=== PATIENT | female | born 1945 | race Caucasian/White ===

== ENCOUNTER 2018-03-18 15:26 | Observation (INO) | payer OTHER ==
--- OUTSIDE RECORDS SUMMARY | 2018-03-18 15:30 | XMS REPORT | Clinical Summary ---
:1945 Author Organization [facility] Address [address] [place] [address] Care Team Providers Name Role Phone Asked, No Pcp Primary Care Provider Unavailable Allergies Active Allergy Reactions Severity Noted Date Comments Aspirin GI Bleeding 10/13/2017 Atropine Other (See Comments) Low 09/26/2017 Insomnia Codeine GI Intolerance High 09/26/2017 Extreme vomiting Erythromycin GI Intolerance High 09/26/2017 Extreme vomiting Fentanyl GI Intolerance Low 09/26/2017 Vomiting and Insomnia Levofloxacin Diarrhea High 09/26/2017 Morphine GI Intolerance High 09/26/2017 Extreme vomiting Rivaroxaban GI Intolerance 10/13/2017 Sulfa (Sulfonamide GI Intolerance High 09/26/2017 Vomiting Antibiotics) Pentazocine Lactate GI Intolerance High 09/26/2017 Extreme vomiting Tramadol Other (See Comments) Medium 09/26/2017 Delirium and psychosis Acetaminophen-Codeine GI Intolerance High 09/26/2017 Extreme Vomiting Current Medications Prescription Sig. Disp. Refills Start Date End Date Status lansoprazole Take 30 mg by Active (PREVACID) 30 MG mouth 2 (two) capsule times a day. venlafaxine XR Take 75 mg by Active (EFFEXOR-XR) 75 MG mouth every 24 hr capsule morning. pregabalin (LYRICA) Take 150 mg by Active 150 MG capsule mouth daily. Mid morning clopidogrel Take 75 mg by Active (PLAVIX) 75 mg mouth every tablet morning. diltiazem Take 120 mg by Active (CardIZEM) 60 MG mouth daily. tablet docusate sodium Take 300 mg by Active (COLACE) 100 MG mouth nightly. capsule promethazine Take 25 mg by Active (PHENERGAN) 25 MG mouth every 6 tablet (six) hours as needed for nausea or vomiting. hyoscyamine Take 0.25 mg 09/29/2017 Active (LEVSIN) 0.125 mg by mouth 2 tablet (two) times a day as needed. phenobarb/hyoscy/at Take by mouth. Active ropine/scop ( ORAL) dicyclomine Take 20 mg by Active (BENTYL) 20 mg mouth 4 (four) tablet times a day. HYDROcodone-acetami Take 1 tablet Active nophen (NORCO) by mouth every 5-325 mg per tablet 6 (six) hours as needed for moderate pain. cyanocobalamin/sukumar Place under Active mamide (B12 SL) the tongue 3 (three) times a day. albuterol (PROAIR Inhale 2 puffs Active HFA,PROVENTIL every 6 (six) HFA,VENTOLIN HFA) hours as 90 mcg/actuation needed for inhaler wheezing. belladonna-phenobar Take 1 tablet 10/04/2017 Discontinued bital () by mouth 2 16.2-0.1037 -0.0194 (two) times a mg tablet day. HYDROcodone-acetami Take 1 tablet 10/18/2017 Discontinued nophen (NORCO) by mouth every 5-325 mg per tablet 6 (six) hours as needed for moderate pain (every 5 hours PRN). diazePAM (VALIUM) Take 10 mg by 01/16/2018 Discontinued 10 MG tablet mouth every 12 (twelve) hours as needed for anxiety (1-2 tablets AM & PM). ciclesonide 2 sprays by 12/31/2017 Discontinued (OMNARIS) 50 mcg Each Nare nasal spray route nightly. enoxaparin Inject 0.4 mL 9.6 mL 0 10/19/2017 11/12/2017 (LOVENOX) 40 mg/0.4 (40 mg total) mL syringe under the skin every morning for 24 days. methocarbamol Take 1 tablet 60 tablet 0 10/18/2017 11/17/2017 (ROBAXIN) 500 MG (500 mg total) tablet by mouth every 8 (eight) hours as needed for muscle spasms for up to [address] 1 patch 30 patch 0 10/18/2017 11/17/2017 (LIDODERM) 5 % on the skin daily for 30 days. Remove & Discard patch within 12 hours or as directed by azithromycin Take 1,000 mg 01/16/2018 Discontinued (ZITHROMAX) 500 MG by mouth 3 tablet (three) times a day. enoxaparin Inject 0.4 mL 12 mL 0 01/16/2018 02/15/2018 (LOVENOX) 40 mg/0.4 (40 mg total) mL syringe under the skin daily for 30 days. traMADol (ULTRAM) Take 0.5 01/16/2018 02/05/2018 50 mg tablet tablets (25 mg total) by mouth every 6 (six) hours as needed for moderate pain for up to 20 days. diazePAM (VALIUM) 5 Take 1 tablet 20 tablet 0 01/16/2018 02/15/2018 MG tablet (5 mg total) by mouth every 12 (twelve) hours as needed for anxiety (1-2 tablets AM & PM) for up to 30 days. metoprolol tartrate Take 1 tablet 60 tablet 0 01/16/2018 02/15/2018 (LOPRESSOR) 25 mg (25 mg total) tablet by mouth 2 (two) times a day for 30 days. Active Problems Problem Noted Date Primary osteoarthritis of left hip 01/11/2018 Osteoarthritis of one hip, right 10/12/2017 Encounters Date Type Specialty Care Team Description 01/11/2018 - Hospital Encounter Orthopedic Surgery Josue Cabrera Primary osteoarthritis 01/16/2018 MD Dani of left hip 01/11/2018 Procedure Pass Orthopedic Surgery 01/11/2018 Surgery Orthopedic Surgery Josue Cabrera ARTHROPLASTY, HIP, NMD Butch TOTAL, ANTERIOR APPROACH 01/02/2018 Pre-Admit Testing Pre-Admission Josue Cabrera Preop testing ( Primary Appointment Testing MD Dani Dx) 01/02/2018 Anesthesia Event Orthopedic Surgery Michelle Yoder NP 10/12/2017 - Hospital Encounter Orthopedic Surgery Josue Cabrera Osteoarthritis of one 10/18/2017 MD Dani hip, right 10/12/2017 Procedure Pass Orthopedic Surgery 10/12/2017 Surgery Orthopedic Surgery Josue Cabrera RIGHT ANTERIOR TOTAL MD Dani HIP ARTHROPLSTY 10/11/2017 Anesthesia Event Orthopedic Surgery Moraima Tubbs APRN 10/04/2017 Orders Only Pre-Admission Teena Olivas Testing 09/26/2017 Pre-Admit Testing Pre-Admission Josue Cabrera Preop testing ( Primary Appointment Testing MD Dani Dx) after 03/17/2017 Family History Medical History Relation Name Comments Heart disease Father Prostate cancer Father Cancer Mother Heart disease Mother Stroke Mother Relation Name Status Comments Father Mother Social History Tobacco Use Types Packs/Day Years Used Date Former Smoker 0.25 40 Quit: 1989 Smokeless Tobacco: Never Used Alcohol Use Drinks/Week oz/Week Comments No Sex Assigned at Date Recorded Not on file Last Filed Vital Signs Vital Sign Reading Time Taken Blood Pressure 102/60 01/16/2018 12:10 PM CDT Pulse 74 01/16/2018 12:10 PM CDT Temperature 36.7 C (98.1 F) 01/16/2018 12:10 PM CDT Respiratory Rate 17 01/16/2018 12:10 PM CDT Oxygen Saturation 98% 01/16/2018 12:10 PM CDT Inhaled Oxygen Concentration - - Weight 61.4 kg (135 lb 7 oz) 01/11/2018 8:35 AM CDT Height 162.6 cm (5' 4") 01/11/2018 8:35 AM CDT Body Mass Index 23.25 01/11/2018 8:35 AM CDT Plan of Treatment Health Maintenance Due Date Last Done Comments BREAST CANCER SCREENING 02/24/1994 COLON CANCER SCREENING 02/24/1994 SHINGRIX VACCINE (#1) 02/24/1994 ZOSTER VACCINE 2004 PNEUMOCOCCAL POLYSACCHARIDE VACCINE AGE 65 AND OVER 02/24/2009 PNEUMOCOCCAL-13 02/24/2009 INFLUENZA VACCINE 01/18/2018 Implants Implanted Type Area Sash Finisher Device Expiration Model / Identifier Date Serial / Lot Shell Actblr Mul-Hl W/ Gripton 54mm [place] - [id number] Hip Joint Right: DEPUY 12/17/2026 [id number] / Implanted: Qty: 1 on 10/12/2017 by Josue Cabrera MD Implants Hip ORTHO- KNEES / [id number] Liner Actblr Neut Altra Linked Pe [id number] Altrx - [id number] Hip Joint Right: DEPUY 07/20/2022 [id number] / Implanted: Qty: 1 on 10/12/2017 by Josue Cabrera MD Implants Hip ORTHO- KNEES / [id number] Screw Bone Canc Dome 6.5x25mm Ltxf [place] - [id number] Hip Joint Right: DEPUY ORTHO 07/20/2026 [id number] / Implanted: Qty: 1 on 10/12/2017 by Josue Cabrera MD Implants Hip / Screw Bone Canc 6.5x20mm [place] - [id number] Hip Joint Right: DEPUY [id number] / Implanted: Qty: 1 on 10/12/2017 by Josue Cabrera MD Implants Hip ORTHO- KNEES / Stem Fml Hip Hiofst Bone Presrvtn Sz 3 101mm Tri-Lock - [id number] Hip Joint Right: DEPUY 08/18/2027 [id number] / Implanted: Qty: 1 on 10/12/2017 by Josue Cabrera MD Implants Hip ORTHO- KNEES / [id number] Stem Fml Hip Hiofst Bone Presrvtn Sz 3 101mm Tri-Lock - [id number] Hip Joint Left: DEPUY 09/18/2027 [id number] / Implanted: Qty: 1 on 01/11/2018 by Josue Cabrera MD Implants Hip ORTHO- KNEES / [id number] Shell Actblr Mul-Hl W/ Gripton 52mm [place] - [id number] Hip Joint Left: DEPUY 08/18/2027 [id number] / Implanted: Qty: 1 on 01/11/2018 by Josue Cabrera MD Implants Hip ORTHO- KNEES / [id number] Liner Actblr Neut Altra Linked Pe [id number] +4 Altrx - [id number] Hip Joint Left: DEPUY 10/17/2022 [id number] / Implanted: Qty: 1 on 01/11/2018 by Josue Cabrera MD Implants Hip ORTHO- KNEES / [id number] Screw Bone Canc Dome 6.5x25mm Ltxf [place] - [id number] Hip Joint Left: DEPUY ORTHO 09/18/2027 [id number] / Implanted: Qty: 1 on 01/11/2018 by Josue Cabrera MD Implants Hip / [id number] Screw Bone Canc Dome 6.5x25mm Ltxf [place] - [id number] Hip Joint Left: DEPUY ORTHO 09/18/2027 [id number] / Implanted: Qty: 1 on 01/11/2018 by Josue Cabrera MD Implants Hip / [id number] Ultamet Wegya-Wd-[id number] Articulation System Femoral Heads M Specification 36 Mm Articul/Natanael M Heads, M Head Size 36, +1.5mm Ea. - [id number] IPM IMPLANT Right : DEPUY 04/19/2022 [id number] / Implanted: Qty: 1 on 10/12/2017 by Josue Cabrera MD [id number] Ultamet [id number] Articulation System Femoral Heads M Specification 36 Mm Articul/Natanael M Heads, M Head Size 36, +1.5mm Ea. - [id number] IPM IMPLANT Left : DEPUY 09/17/2022 [id number] / Implanted: Qty: 1 on 01/11/2018 by Josue Cabrera MD [id number] Procedures Procedure Name Priority Date/Time Associated Diagnosis Comments TRANSFUSE RED BLOOD Routine 02/22/2018 5:56 CELLS PM CDT TRANSFUSE RED BLOOD Routine 02/22/2018 5:52 CELLS PM CDT TRANSFUSE RED BLOOD Routine 02/22/2018 5:52 CELLS PM CDT ECHOCARDIOGRAM 2D Routine 01/16/2018 10:50 Results for this COMPLETE W MMODE AM CDT procedure are in SPECTRAL COLOR DOPPLER the results (37677) section. MAGNESIUM LEVEL Routine 01/16/2018 5:07 Results for this AM CDT procedure are in the results section. ECG 12-LEAD Routine 01/15/2018 7:33 Results for this AM CDT procedure are in the results section. TROPONIN Routine 01/15/2018 5:03 Results for this AM CDT procedure are in the results section. HC COMPLETE BLD COUNT Routine 01/15/2018 5:03 Results for this W/AUTO DIFF AM CDT procedure are in the results section. ECG 12-LEAD STAT 01/14/2018 10:51 Results for this PM CDT procedure are in the results section. TROPONIN STAT 01/14/2018 10:08 Results for this PM CDT procedure are in the results section. SMEAR REVIEW Routine 01/14/2018 6:30 Results for this AM CDT procedure are in the results section. B NATRIURETIC PEPTIDE Routine 01/14/2018 6:30 Results for this AM CDT procedure are in the results section. HC COMPLETE BLD COUNT Routine 01/14/2018 6:30 Results for this W/AUTO DIFF AM CDT procedure are in the results section. ZZESTIMATED GFR Routine 01/14/2018 4:00 Results for this AM CDT procedure are in the results section. BASIC METABOLIC PANEL Routine 01/14/2018 4:00 Results for this AM CDT procedure are in the results section. HEMOGLOBIN & Routine 01/13/2018 3:20 Results for this HEMATOCRIT PM CDT procedure are in the results section. HC COMPLETE BLD COUNT Routine 01/13/2018 5:39 Results for this W/AUTO DIFF AM CDT procedure are in the results section. ZZESTIMATED GFR Routine 01/13/2018 4:00 Results for this AM CDT procedure are in the results section. BASIC METABOLIC PANEL Routine 01/13/2018 4:00 Results for this AM CDT procedure are in the results section. XR CHEST 1 VW PORTABLE Routine 01/12/2018 2:53 Results for this PM CDT procedure are in the results section. ECG 12-LEAD STAT 01/12/2018 2:47 Results for this AM CDT procedure are in the results section. TROPONIN Routine 01/12/2018 1:00 Results for this AM CDT procedure are in the results section. MAGNESIUM LEVEL Routine 01/12/2018 1:00 Results for this AM CDT procedure are in the results section. ZZESTIMATED GFR Routine 01/12/2018 1:00 Results for this AM CDT procedure are in the results section. BASIC METABOLIC PANEL Routine 01/12/2018 1:00 Results for this AM CDT procedure are in the results section. HC COMPLETE BLD COUNT Routine 01/12/2018 1:00 Results for this W/AUTO DIFF AM CDT procedure are in the results section. SURGICAL PATHOLOGY Routine 01/11/2018 2:39 Results for this REQUEST PM CDT procedure are in the results section. XR PELVIS 1 OR 2 VW Routine 01/11/2018 2:37 Results for this PM CDT procedure are in the results section. POC GLUCOSE Routine 01/11/2018 2:29 Results for this PM CDT procedure are in the results section. ARTHROPLASTY, HIP, 01/11/2018 1:30 Primary TOTAL, ANTERIOR PM CDT osteoarthritis of APPROACH left hip Special Needs LARGE C-ARM HANA TABLE XR PELVIS 1 OR 2 VW Routine 01/11/2018 1:15 PM CDT OR FL > 1 HOUR Routine 01/11/2018 1:10 PM CDT DC AN ELECTIVE ENDOTRACHEAL Routine 01/11/2018 12:20 PM CDT AIRWAY Procedure Note - Avelina Ash CRNA - 01/11/2018 12:20 PM CDT Airway Date/Time: 01/11/2018 12:20 PM Performed by: AVELINA ASH Authorized by: CHIOMA HARDY Location: OR Urgency: Elective Difficult Airway: No Preoxygenated with 100% O2: Yes C-spine Precautions Maintained Throughout: Yes Mask Ventilation: Easy mask Final Airway Type: Endotracheal airway Final Endotracheal Airway: ETT Cuffed: Yes Technique Used: Direct laryngoscopy Devices/Methods Used in Placement: Intubating stylet Insertion Site: Oral Blade Type: Bai Laryngoscope Blade/Videolaryngoscope Blade Size: 2 ETT Size (mm): 7.0 Cuff at minimum occlusion pressure: Yes Measured from: Teeth ETT to Teeth (cm): 20 Placement Verified by: CO2 detection, direct visualization and equal breath sounds Laryngoscopic view: Grade I - full view of glottis Rapid Sequence Induction (RSI): No Modified RSI: No Number of Attempts at Approach: 1 EAST, DENTITION AND ORAL MUCOSA UNCAHNGED POC GLUCOSE Routine 01/11/2018 7:42 AM Results for this CDT procedure are in the results section. PREPARE RBC STAT 01/11/2018 7:23 AM Results for this CDT procedure are in the results section. TYPE AND SCREEN STAT 01/11/2018 7:23 AM Results for this CDT procedure are in the results section. URINE CULTURE Routine 01/02/2018 7:07 PM Results for this CDT procedure are in the results section. URINALYSIS SCREEN AND Routine 01/02/2018 3:59 PM Preop testing Results for this MICROSCOPY, WITH REFLEX CDT procedure are in TO CULTURE the results section. ZZESTIMATED GFR Routine 01/02/2018 3:40 PM Results for this CDT procedure are in the results section. HEMOGLOBIN A1C Routine 01/02/2018 3:40 PM Preop testing Results for this CDT procedure are in the results section. PROTHROMBIN TIME WITH Routine 01/02/2018 3:40 PM Preop testing Results for this INR CDT procedure are in the results section. PARTIAL THROMBOPLASTIN Routine 01/02/2018 3:40 PM Preop testing Results for this TIME (PTT) CDT procedure are in the results section. CBC HEMOGRAM Routine 01/02/2018 3:40 PM Preop testing Results for this CDT procedure are in the results section. COMPREHENSIVE METABOLIC Routine 01/02/2018 3:40 PM Preop testing Results for this PANEL CDT procedure are in the results section. HC COMPLETE BLD COUNT Routine 10/17/2017 6:22 AM Results for this W/AUTO DIFF CDT procedure are in the results section. ZZESTIMATED GFR Routine 10/17/2017 4:00 AM Results for this CDT procedure are in the results section. BASIC METABOLIC PANEL Routine 10/17/2017 4:00 AM Results for this CDT procedure are in the results section. HC COMPLETE BLD COUNT Routine 10/16/2017 5:20 AM Results for this W/AUTO DIFF CDT procedure are in the results section. ZZESTIMATED GFR Routine 10/16/2017 4:00 AM Results for this CDT procedure are in the results section. BASIC METABOLIC PANEL Routine 10/16/2017 4:00 AM Results for this CDT procedure are in the results section. PREPARE RBC Timed 10/15/2017 10:20 PM CDT TYPE AND SCREEN Routine 10/15/2017 10:19 PM Results for this CDT procedure are in the results section. ZZESTIMATED GFR Routine 10/15/2017 4:00 AM Results for this CDT procedure are in the results section. LIPID PANEL Routine 10/15/2017 4:00 AM Results for this CDT procedure are in the results section. B NATRIURETIC PEPTIDE Routine 10/15/2017 4:00 AM Results for this CDT procedure are in the results section. BASIC METABOLIC PANEL Routine 10/15/2017 4:00 AM Results for this CDT procedure are in the results section. HC COMPLETE BLD COUNT Routine 10/15/2017 4:00 AM Results for this W/AUTO DIFF CDT procedure are in the results section. XR CHEST 1 VW PORTABLE STAT 10/14/2017 12:44 PM Results for this CDT procedure are in the results section. URINALYSIS SCREEN AND STAT 10/14/2017 6:00 AM Results for this MICROSCOPY, WITH REFLEX CDT procedure are in TO CULTURE the results section. GRAM STAIN STAT 10/14/2017 6:00 AM Results for this CDT procedure are in the results section. URINE CULTURE STAT 10/14/2017 6:00 AM Results for this CDT procedure are in the results section. LACTIC ACID LEVEL STAT 10/14/2017 4:30 AM Results for this CDT procedure are in the results section. ZZESTIMATED GFR Routine 10/14/2017 4:30 AM Results for this CDT procedure are in the results section. B NATRIURETIC PEPTIDE Routine 10/14/2017 4:30 AM Results for this CDT procedure are in the results section. BASIC METABOLIC PANEL Routine 10/14/2017 4:30 AM Results for this CDT procedure are in the results section. CBC WITH PLATELET AND Routine 10/14/2017 4:30 AM Results for this DIFFERENTIAL CDT procedure are in the results section. BLOOD CULTURE, AEROBIC & Routine 10/14/2017 4:30 AM Results for this ANAEROBIC CDT procedure are in the results section. BLOOD CULTURE, AEROBIC & Routine 10/14/2017 4:30 AM Results for this ANAEROBIC CDT procedure are in the results section. TRANSFUSE RED BLOOD Routine 10/13/2017 10:47 PM CELLS CDT HEMOGLOBIN & HEMATOCRIT Routine 10/13/2017 2:48 PM Results for this CDT procedure are in the results section. PHOSPHORUS LEVEL Routine 10/13/2017 2:48 PM Results for this CDT procedure are in the results section. MAGNESIUM LEVEL Routine 10/13/2017 2:48 PM Results for this CDT procedure are in the results section. POC GLUCOSE Routine 10/13/2017 12:18 PM Results for this CDT procedure are in the results section. POC GLUCOSE Routine 10/13/2017 7:57 AM Results for this CDT procedure are in the results section. POC GLUCOSE Routine 10/13/2017 4:37 AM Results for this CDT procedure are in the results section. ZZESTIMATED GFR Routine 10/13/2017 1:03 AM Results for this CDT procedure are in the results section. BASIC METABOLIC PANEL Routine 10/13/2017 1:03 AM Results for this CDT procedure are in the results section. HC COMPLETE BLD COUNT Routine 10/13/2017 12:50 AM Results for this W/AUTO DIFF CDT procedure are in the results section. POC GLUCOSE Routine 10/13/2017 12:45 AM Results for this CDT procedure are in the results section. ZZESTIMATED GFR Routine 10/12/2017 7:45 PM Results for this CDT procedure are in the results section. IONIZED CALCIUM, Routine 10/12/2017 7:45 PM Results for this ARTERIAL CDT procedure are in the results section. PARTIAL THROMBOPLASTIN Routine 10/12/2017 7:45 PM Results for this TIME (PTT) CDT procedure are in the results section. PROTHROMBIN TIME WITH Routine 10/12/2017 7:45 PM Results for this INR CDT procedure are in the results section. HC COMPLETE BLD COUNT Routine 10/12/2017 7:45 PM Results for this W/AUTO DIFF CDT procedure are in the results section. PHOSPHORUS LEVEL Routine 10/12/2017 7:45 PM Results for this CDT procedure are in the results section. MAGNESIUM LEVEL Routine 10/12/2017 7:45 PM Results for this CDT procedure are in the results section. ARTERIAL BLOOD GAS Routine 10/12/2017 7:45 PM Results for this CDT procedure are in the results section. BASIC METABOLIC PANEL Routine 10/12/2017 7:45 PM Results for this CDT procedure are in the results section. POC GLUCOSE Routine 10/12/2017 7:40 PM Results for this CDT procedure are in the results section. POC GLUCOSE Routine 10/12/2017 5:53 PM Results for this CDT procedure are in the results section. ARTERIAL BLOOD GAS STAT 10/12/2017 4:13 PM Results for this CDT procedure are in the results section. XR PELVIS 1 OR 2 VW Routine 10/12/2017 1:31 PM Results for this CDT procedure are in the results section. POC GLUCOSE Routine 10/12/2017 1:03 PM Results for this CDT procedure are in the results section. SURGICAL PATHOLOGY Routine 10/12/2017 12:46 PM Results for this REQUEST CDT procedure are in the results section. XR PELVIS 1 OR 2 VW Routine 10/12/2017 12:07 PM Results for this CDT procedure are in the results section. OR FL > 1 HOUR Routine 10/12/2017 11:51 AM Results for this CDT procedure are in the results section. ARTERIAL LINE Routine 10/12/2017 11:10 AM CDT Procedure Note - Avelina Ash CRNA - 10/12/2017 11:10 AM CDT Arterial line Performed by: AVELINA ASH Authorized by: DARWIN NICHOLE Patient Location: OR Start Time: 10/12/2017 11:11 AM End Time: 10/12/2017 11:11 AM Staff: Performed by: Resident/PROCESS CAMERA OPERATOR/AA Pre-procedure: patient identified, IV checked, site and side verified, risks and benefits discussed, procedure verified, surgical consent complete, patient position confirmed, monitors and equipment checked and pre-op evaluation complete MSBT: antiseptic used, all elements of maximal sterile barrier technique followed, hand hygiene performed, cap/gown used by other personnel and solutions labeled TIme Out Performed: 10/12/2017 11:11 AM Indications: Indications: multiple ABGs and hemodynamic monitoring Anesthesia: Anesthesia: General Procedure Details: Arterial Line placement: Placed post induction Line placement site: Radial Line placement side: Left Arterial line gauge: 20 G Number of attempts: 1 Ultrasound guidance used: No Post-procedure: Post-procedure: Sterile dressing applied Post procedure circulation, sensation, movement: Unchanged and normal Patient tolerance: Patient tolerated the procedure well with no immediate complications DC AN ELECTIVE ENDOTRACHEAL AIRWAY Routine 10/12/2017 11:10 AM CDT Procedure Note - Avelina Ash PROCESS CAMERA OPERATOR - 10/12/2017 11:10 AM CDT Airway Date/Time: 10/12/2017 11:10 AM Performed by: AVELINA ASH Authorized by: DARWIN NICHOLE Location: OR Urgency: Elective Difficult Airway: No Preoxygenated with 100% O2: Yes C-spine Precautions Maintained Throughout: Yes Mask Ventilation: Easy mask Final Airway Type: Endotracheal airway Final Endotracheal Airway: ETT Cuffed: Yes Technique Used: Direct laryngoscopy Devices/Methods Used in Placement: Intubating stylet Insertion Site: Oral Blade Type: Bai Laryngoscope Blade/Videolaryngoscope Blade Size: 2 ETT Size (mm): 7.0 Cuff at minimum occlusion pressure: Yes Measured from: Teeth ETT to Teeth (cm): 20 Placement Verified by: CO2 detection, direct visualization and equal breath sounds Laryngoscopic view: Grade IIa - partial view of glottis Rapid Sequence Induction (RSI): No Modified RSI: No Number of Attempts at Approach: 1 Atraumatic. Dentition and oral mucosa unchanged ARTHROPLASTY, HIP, TOTAL, 10/12/2017 10:15 AM CDT Osteoarthritis of one hip , ANTERIOR APPROACH right Case Notes C ARM, HANA TABLE Special Needs C ARM, HANA TABLE POC GLUCOSE Routine 10/12/2017 6:33 AM Results for this CDT procedure are in the results section. URINE CULTURE Routine 09/26/2017 7:29 PM Results for this CDT procedure are in the results section. ECG PRE/POST OP Routine 09/26/2017 6:12 PM Preop testing Results for this CDT procedure are in the results section. PREPARE RBC Routine 09/26/2017 5:23 PM Results for this CDT procedure are in the results section. ZZESTIMATED GFR Routine 09/26/2017 5:23 PM Results for this CDT procedure are in the results section. TYPE AND SCREEN Routine 09/26/2017 5:23 PM Preop testing Results for this CDT procedure are in the results section. PARTIAL THROMBOPLASTIN Routine 09/26/2017 5:23 PM Preop testing Results for this TIME (PTT) CDT procedure are in the results section. PROTHROMBIN TIME WITH Routine 09/26/2017 5:23 PM Preop testing Results for this INR CDT procedure are in the results section. COMPREHENSIVE METABOLIC Routine 09/26/2017 5:23 PM Preop testing Results for this PANEL CDT procedure are in the results section. CBC HEMOGRAM Routine 09/26/2017 5:23 PM Preop testing Results for this CDT procedure are in the results section. URINALYSIS SCREEN AND Routine 09/26/2017 5:23 PM Preop testing Results for this MICROSCOPY, WITH REFLEX CDT procedure are in TO CULTURE the results section. HEMOGLOBIN A1C Routine 09/26/2017 5:23 PM Preop testing Results for this CDT procedure are in the results section. after 03/17/2017 Results Transfuse RBC (02/22/2018 5:56 PM)Only the most recent of4 resultswithin the time period is included.Echocardiogram complete w contrast and 3D if needed ( 10:50 AM) Narrative [facility]formed At [facility] [facility] Report [address]Name:Ranjit OLIVAS.ID:[id number] .Date: 01/16/2018 Refer.MD:JOSUE CABRERA MD Exam Time: 10:15:00 AM Study Type:Routine Echo Height:64inWeight: 135lb BSA: 1.66 m2 DOBAge:1945,72Y Sex: FEMALEBP:117/65 HR:83 bpmSonogrphr: [facility] Pat. Stat.:Inpatient Room:[facility] Study Status:Final Echo Event ID:[id number] Order ID:[id number] Reason for Study:V TACH Procedures:2D Echo, Colorflow Doppler Race:C SUMMARY: Technically difficult study, however LVEF and RVEF appear preserved. FINDINGS: LV: LV size is normal. LV EF is normal. Overall wall motion is normal.Estimated EF is 60-64%. RV: RV size is normal. RV systolic function is normal. RV wall motionis normal. LA: LA size is normal. RA: RA size is normal. AO: Aortic root diameter is normal. KHADIJAH: No pericardial effusion. AV: Aortic valve not well seen. MV: No structural MV abnormalities noted. PV: Pulmonic valve not well seen. TV: No structural TV abnormalities noted. A trace of tricuspid regurgitation Olmedo: LV relaxation is reduced, appropriate for age. LV filling pressureis normal. Other:Insufficient TR jet to estimate PA systolic pressure. MEASUREMENTS: 2D Parasternal [place] LVOT 2 cmAo Rtd 3 cm Index1.8 cm/m LVIDd4.1 cmIndex2.5 cm/m LV Mass 68.3 g(87-129) IVSd 0.7 cmLVM Index 41.2 g/m2 LVPWd0.5 cmRWT0.3 Signed 01/16/2018 04:04 PM Jayne Boles M.D. Procedure Note Interface, Radiology Results In - 01/16/2018 4:04 PM CDT Echocardiography Report [id number] [facility] [address], [place] [id number] Pat.Name: MARI OLIVAS.ID: [id number] St.Date: 01/16/2018 Refer.MD: JOSUE CABRERA MD Exam Time: 10:15:00 AM Study Type:Routine Echo Height: 64in Weight: 135lb BSA: 1.66 m2 Age: 8 1945,72Y Sex: FEMALE BP: 117/65 HR: 83 bpm Sonogrphr: CONSTANZA Guthrie Pat. Stat.:Inpatient Room: [facility] Study Status:Final Echo Event ID:[id number] Order ID: [id number] Reason for Study:V TACH Procedures:2D Echo, Colorflow Doppler Race: C SUMMARY: Technically difficult study, however LVEF and RVEF appear preserved. FINDINGS: LV: LV size is normal. LV EF is normal. Overall wall motion is normal. Estimated EF is 60-64%. RV: RV size is normal. RV systolic function is normal. RV wall motion is normal. LA: LA size is normal. RA: RA size is normal. AO: Aortic root diameter is normal. KHADIJAH: No pericardial effusion. AV: Aortic valve not well seen. MV: No structural MV abnormalities noted. PV: Pulmonic valve not well seen. TV: No structural TV abnormalities noted. A trace of tricuspid regurgitation Olmedo: LV relaxation is reduced, appropriate for age. LV filling pressure is normal. Other: Insufficient TR jet to estimate PA systolic pressure. MEASUREMENTS: 2D Parasternal [place] LVOT 2 cm Ao Rtd 3 cm Index 1.8 cm/m LVIDd 4.1 cm Index 2.5 cm/m LV Mass 68.3 g (87-129) IVSd 0.7 cm LVM Index 41.2 g/m2 LVPWd 0.5 cm RWT 0.3 Signed 01/16/2018 04:04 PM Jayne Boles M.D. Performing Organization Address City/[facility]/[email or web address] Phone Number [facility] [address] [place] [address] Magnesium level (01/16/2018 5:07 AM)Only the most recent of4 resultswithin the time period is included. Magnesium 2.2 1.6 - 2.4 mg/dL [facility] DEPARTMENT OF PATHOLOGY AND GENOMIC MEDICINE Specimen Plasma specimen Performing Organization Address [facility] Phone Number [facility] DEPARTMENT OF PATHOLOGY AND [address] [place] [address] GENOMIC MEDICINE ECG 12 lead (01/15/2018 7:33 AM)Only the most recent of3 resultswithin the time period is included. Ventricular rate 78 [facility] MUSE Atrial rate 78 [facility] MUSE DC interval 126 [facility] MUSE QRSD interval 92 [facility] MUSE QT interval 380 [facility] M[facility] QTC interval 433 [facility] MUSE P axis 1 66 [facility] MUSE QRS axis 1 55 [facility] MUSE T wave axis 58 [facility] MUSE EKG impression Normal sinus rhythm-Normal [facility] MUSE ECG-- Performing Organization Address [facility] Hospitalcode Phone Number [facility] [address] [place] [address] Troponin (01/15/2018 5:03 AM)Only the most recent of3 resultswithin the time period is included. Troponin <0.30 0.00 - 0.30 ng/mL [facility] DEPARTMENT OF PATHOLOGY Comment: AND GENOMIC MEDICINE 0.30 - 1.49 ng/mlMay indicate increased risk of acute coronary syndrome. >=1.5 ng/mlConsistent with acute myocardial infarction. The diagnostic value of a single normal or non-diagnostic result is questionable.Serial samples at 2-6 hour intervals are required to rule out acute myocardial injury. Specimen Plasma specimen Performing Organization Address City/State/Zipcode Phone Number [facility] DEPARTMENT OF PATHOLOGY AND [address] [place] [address] GENOMIC MEDICINE CBC with platelet and differential (01/15/2018 5:03 AM)Only the most recent of10 resultswithin the time period is included. WBC 3.34 (L) 4.50 - 11.00 k/uL [facility] DEPARTMENT OF PATHOLOGY AND GENOMIC MEDICINE RBC 2.56 (L) 4.20 - 5.50 m/uL [facility] DEPARTMENT OF PATHOLOGY AND GENOMIC MEDICINE HGB 7.8 (L) 12.0 - 16.0 g/dL [facility] DEPARTMENT OF PATHOLOGY AND GENOMIC MEDICINE HCT 23.8 (L) 37.0 - 47.0 % [facility] DEPARTMENT OF PATHOLOGY AND GENOMIC MEDICINE MCV 93.0 82.0 - 100.0 fL [facility] DEPARTMENT OF PATHOLOGY AND GENOMIC MEDICINE MCH 30.5 27.0 - 34.0 pg [facility] DEPARTMENT OF PATHOLOGY AND GENOMIC MEDICINE MCHC 32.8 31.0 - 37.0 g/dL [facility] DEPARTMENT OF PATHOLOGY AND GENOMIC MEDICINE RDW - SD 47.4 37.0 - 55.0 fL [facility] DEPARTMENT OF PATHOLOGY AND GENOMIC MEDICINE MPV 10.0 8.8 - 13.2 fL [facility] DEPARTMENT OF PATHOLOGY AND GENOMIC MEDICINE Platelet count 137 (L) 150 - 400 k/uL [facility] DEPARTMENT OF PATHOLOGY AND GENOMIC MEDICINE Nucleated RBC 0.00 /100 WBC [facility] DEPARTMENT OF PATHOLOGY AND GENOMIC MEDICINE Neutrophils 43.7 39.0 - 69.0 % [facility] DEPARTMENT OF PATHOLOGY AND GENOMIC MEDICINE Lymphocytes 36.2 25.0 - 45.0 % [facility] DEPARTMENT OF PATHOLOGY AND GENOMIC MEDICINE Monocytes 9.0 0.0 - 10.0 % [facility] DEPARTMENT OF PATHOLOGY AND GENOMIC MEDICINE Eosinophils 10.2 (H) 0.0 - 5.0 % [facility] DEPARTMENT OF PATHOLOGY AND GENOMIC MEDICINE Basophils 0.6 0.0 - 1.0 % [facility] DEPARTMENT OF PATHOLOGY AND GENOMIC MEDICINE Immature granulocytes 0.3Comment: 0.0 - 1.0 % [facility] DEPARTMENT OF "Immature PATHOLOGY AND GENOMIC granulocytes" MEDICINE (promyelocytes, myelocytes, metamyelocytes) Specimen Blood Performing Organization Address City/[facility] Hospitalcode Phone Number [facility] DEPARTMENT OF PATHOLOGY AND [address] [place] [address] MEDICINE Smear review (01/14/2018 6:30 AM) Platelet slide review Mirela slt decr [facility] DEPARTMENT OF PATHOLOGY AND GENOMIC MEDICINE Anisocytosis Moderate [facility] DEPARTMENT OF PATHOLOGY AND GENOMIC MEDICINE Polychromasia Moderate [facility] DEPARTMENT OF PATHOLOGY AND GENOMIC MEDICINE Performing Organization Address City/[facility] Hospitalcode Phone Number [facility] DEPARTMENT OF PATHOLOGY AND [address] [place] [address] MEDICINE B natriuretic peptide (01/14/2018 6:30 AM)Only the most recent of3 resultswithin the time period is included. BNP 25 0 - 100 pg/mL [facility] DEPARTMENT OF PATHOLOGY AND GENOMIC MEDICINE Specimen Blood Performing Organization Address [facility] Phone Number [facility] DEPARTMENT OF PATHOLOGY AND [address] [place] [address] Estimated GFR (01/14/2018 4:00 AM)Only the most recent of11 resultswithin the time period is included. GFR Non Af Amer >90 mL/min/1.73 m2 [facility] DEPARTMENT OF PATHOLOGY AND GENOMIC MEDICINE GFR Af Amer >90 mL/min/1.73 m2 [facility] DEPARTMENT OF Comment: PATHOLOGY AND GENOMIC Chronic kidney disease: <60 mL/min/1.73m2 MEDICINE Kidney failure: <15 mL/min/1.73m2 The estimated GFR is calculated from the IDMS-traceable Modification of Diet in Renal Disease Equation. The accuracy of the calculation is poor when the creatinine is normal. Calculated values >90 mL/min/1.73m2 are not reported. This equation has not been validated in children (<18 years), women, the elderly (>70 years), or ethnic groups other than Caucasians and Americans. Specimen Plasma specimen Performing Organization Address City/[facility]code Phone Number [facility] DEPARTMENT OF PATHOLOGY AND [address] [place] [address] Basic metabolic panel (01/14/2018 4:00 AM)Only the most recent of9 resultswithin the time period is included. Sodium 137 135 - 148 mEq/L [facility] DEPARTMENT OF PATHOLOGY AND GENOMIC MEDICINE Potassium 4.1 3.5 - 5.0 mEq/L [facility] DEPARTMENT OF PATHOLOGY AND GENOMIC MEDICINE Chloride 99 98 - 112 mEq/L [facility] DEPARTMENT OF PATHOLOGY AND GENOMIC MEDICINE CO2 25 24 - 31 mEq/L [facility] DEPARTMENT OF PATHOLOGY AND GENOMIC MEDICINE Anion gap 13@ANIO 7 - 15 mEq/L [facility] DEPARTMENT OF PATHOLOGY AND GENOMIC MEDICINE BUN 8 8 - 23 mg/dL [facility] DEPARTMENT OF PATHOLOGY AND GENOMIC MEDICINE Creatinine 0.6 0.5 - 0.9 mg/dL [facility] DEPARTMENT OF PATHOLOGY AND GENOMIC MEDICINE Glucose 109 (H) 65 - 99 mg/dL [facility] DEPARTMENT OF PATHOLOGY AND GENOMIC MEDICINE Calcium 8.2 (L) 8.8 - 10.2 mg/dL [facility] DEPARTMENT OF PATHOLOGY AND GENOMIC MEDICINE Specimen Plasma specimen Performing Organization Address City/State/[facility] Phone Number [facility] DEPARTMENT OF PATHOLOGY AND [address] [place] [address] Hemoglobin & hematocrit (01/13/2018 3:20 PM)Only the most recent of2 resultswithin the time period is included. HGB 7.6 (L) 12.0 - 16.0 g/dL [facility] DEPARTMENT OF PATHOLOGY AND GENOMIC MEDICINE HCT 23.5 (L) 37.0 - 47.0 % [facility] DEPARTMENT OF PATHOLOGY AND GENOMIC MEDICINE Specimen Blood Performing Organization Address City/State/[facility]code Phone Number [facility] DEPARTMENT OF PATHOLOGY AND [address] [place], [place] [id number] [facility] XR Chest 1 Vw Portable (01/12/2018 2:53 PM)Only the most recent of2 resultswithin the time period is included. Narrative Performed At EXAMINATION:XR CHEST 1 VW PORTABLE [facility] CLINICAL HISTORY:fever COMPARISON:To previous study from 10/14/2017 IMPRESSION: The cardiomediastinal silhouette is normal in appearance. The lungs are clear. There is no evidence of consolidation, congestion, or pneumothorax. A pleural effusion is not present. The lungs are hyperinflated. Probable arthritic changes are noted involving the right shoulder partially visualized. [id number] Procedure Note Interface, Radiology Results Incoming - 01/12/2018 2:58 PM CDT EXAMINATION: XR CHEST 1 VW PORTABLE CLINICAL HISTORY: fever COMPARISON: To previous study from 10/14/2017 IMPRESSION: The cardiomediastinal silhouette is normal in appearance. The lungs are clear. There is no evidence of consolidation, congestion, or pneumothorax. A pleural effusion is not present. The lungs are hyperinflated. Probable arthritic changes are noted involving the right shoulder partially visualized. [facility]-[id number] Performing Organization Address City/[facility]/Zipcode Phone Number [facility] [address] [place] [address] Surgical pathology request (01/11/2018 2:39 PM)Only the most recent of2 resultswithin the time period is included. [facility] DEPARTMENT OF PATHOLOGY AND GENOMIC MEDICINE Surgical pathology report See link below for PDF [facility] DEPARTMENT OF Lab Report PATHOLOGY AND GENOMIC MEDICINE Result status This is Final Report to [facility] DEPARTMENT OF [id number] PATHOLOGY AND GENOMIC MEDICINE Performing Organization Address [facility] Hospitalcomn Phone Number [facility] DEPARTMENT OF PATHOLOGY AND [address] [place] [phone] GENOMIC MEDICINE XR Pelvis 1 Or 2 Vw (01/11/2018 2:37 PM)Only the most recent of4 resultswithin the time period is included. Narrative Performed At EXAMINATION:XR PELVIS 1 OR 2 VW [facility] CLINICAL HISTORY:Post operative COMPARISON:None. FINDINGS: Postoperative examination demonstrates placement of a left hip arthroplasty, without evidence of fracture. Alignment is good. IMPRESSION: Postoperative study. [facility]-[id number] Procedure Note Hm Interface, Radiology Results Incoming - 01/11/2018 2:55 PM CDT EXAMINATION: XR PELVIS 1 OR 2 VW CLINICAL HISTORY: Post operative COMPARISON: None. FINDINGS: Postoperative examination demonstrates placement of a left hip arthroplasty, without evidence of fracture. Alignment is good. IMPRESSION: Postoperative study. [facility]-[id number] Performing Organization Address City/[facility]/Zipcode Phone Number [facility] [address] [place] [address] POC glucose (01/11/2018 2:29 PM)Only the most recent of10 resultswithin the time period is included. POC glucose 143 (H) 65 - 99 mg/dL [facility] DEPARTMENT OF PATHOLOGY AND Comment: GENOMIC MEDICINE [facility] Notified RN Meter ID: [id number] White Lead Grinder: Wayne Kaur Performing Organization Address City/State/Zipcode Phone Number [facility] DEPARTMENT OF PATHOLOGY AND [address] [place] [address] GENOMIC MEDICINE OR [place] > I Hour (01/11/2018 1:10 PM)Only the most recent of2 resultswithin the time period is included. Narrative Performed At IMPRESSION: C-arm fluoroscopy over 1 hour was provided in the OR for the [facility] referring physician. A radiologist was not present during the procedure. Refer to the Operative report issued by the performing provider for procedure details. Location:[facility] Room 11 Procedure: LEFT HIP ARTHROPLASTY ANTERIOR Start Time:1210 End Time: 1310 Fluoro Time:7 SEC Dose (mGy):0.66 mGy Tech(s):GXA Procedure Note Interface, Radiology Results Incoming - 01/11/2018 2:40 PM CDT IMPRESSION: C-arm fluoroscopy over 1 hour was provided in the OR for the referring physician. A radiologist was not present during the procedure. Refer to the Operative report issued by the performing provider for procedure details. [facility] Procedure: LEFT HIP ARTHROPLASTY ANTERIOR Start Time: 1210 End Time: 1310 Fluoro Time: 7 SEC Dose (mGy): 0.66 mGy Tech(s): GXA Performing Organization Address City/[facility] Phone Number [facility] [address] [place] [address] Prepare RBC, 1 Units (01/11/2018 7:23 AM)Only the most recent of2 resultswithin the time period is included. Product name Apheresis -3 LR #1 [facility] DEPARTMENT OF PATHOLOGY AND GENOMIC MEDICINE Unit number [id number] [facility] DEPARTMENT OF PATHOLOGY AND GENOMIC MEDICINE Product code [id number] [facility] DEPARTMENT OF PATHOLOGY AND GENOMIC MEDICINE Dispense status Transfused [facility] DEPARTMENT OF PATHOLOGY AND GENOMIC MEDICINE Blood expiration date [id number] [facility] DEPARTMENT OF PATHOLOGY AND GENOMIC MEDICINE Blood type code 5100 [facility] DEPARTMENT OF PATHOLOGY AND GENOMIC MEDICINE Blood type O POSITIVE [facility] DEPARTMENT OF PATHOLOGY AND GENOMIC MEDICINE Performing Organization Address City/[facility]/Zipcode Phone Number [facility] DEPARTMENT OF PATHOLOGY AND [address] [place] [phone] GENOMIC MEDICINE Type and screen (01/11/2018 7:23 AM)Only the most recent of3 resultswithin the time period is included. ABO grouping O [facility] DEPARTMENT OF PATHOLOGY AND GENOMIC MEDICINE Rh type POS [facility] DEPARTMENT OF PATHOLOGY AND GENOMIC MEDICINE Antibody screen (gel) NEG [facility] DEPARTMENT OF PATHOLOGY AND GENOMIC MEDICINE Specimen Blood Performing Organization Address City/[facility] Phone Number [facility] DEPARTMENT PATHOLOGY AND [address] [place] [phone] [facility] Urine culture (01/02/2018 7:07 PM)Only the most recent of3 resultswithin the time period is included. Urine culture SEE COMMENTComment: Bacteriuria [facility] DEPARTMENT OF PATHOLOGY screen negative. AND GENOMIC MEDICINE Performing Organization Address [facility]code Phone Number [facility] DEPARTMENT OF PATHOLOGY AND [address] [place] [phone] [facility] Urinalysis screen and microscopy, with reflex to culture (01/02/2018 3:59 PM) Only the most recent of3 resultswithin the time period is included. Specimen site Clean catch [facility] DEPARTMENT OF PATHOLOGY AND GENOMIC MEDICINE Color, UA Straw [facility] DEPARTMENT OF PATHOLOGY AND GENOMIC MEDICINE Appearance, UA Clear [facility] DEPARTMENT OF PATHOLOGY AND GENOMIC MEDICINE Specific gravity, UA 1.008 1.001 - 1.035 [facility] DEPARTMENT OF PATHOLOGY AND GENOMIC MEDICINE pH, UA 6.0 5.0 - 8.5 [facility] DEPARTMENT OF PATHOLOGY AND GENOMIC MEDICINE Protein, UA Negative Negative [facility] DEPARTMENT OF PATHOLOGY AND GENOMIC MEDICINE Glucose, UA Negative Negative [facility] DEPARTMENT OF PATHOLOGY AND GENOMIC MEDICINE Ketones, UA Negative Negative [facility] DEPARTMENT OF PATHOLOGY AND GENOMIC MEDICINE Bilirubin, UA Negative Negative [facility] DEPARTMENT OF PATHOLOGY AND GENOMIC MEDICINE Blood, UA Negative Negative [facility] DEPARTMENT OF PATHOLOGY AND GENOMIC MEDICINE Nitrite, UA Negative Negative [facility] DEPARTMENT OF PATHOLOGY AND GENOMIC MEDICINE Urobilinogen, UA <2.0 <2.0 [facility] DEPARTMENT OF PATHOLOGY AND GENOMIC MEDICINE Leukocyte esterase, UA Negative Negative [facility] DEPARTMENT OF PATHOLOGY AND GENOMIC MEDICINE WBC, UA <1 0 - 4 /HPF [facility] DEPARTMENT OF PATHOLOGY AND GENOMIC MEDICINE RBC, UA <1 0 - 5 /HPF [facility] DEPARTMENT OF PATHOLOGY AND GENOMIC MEDICINE Bacteria, UA None seen None seen [facility] DEPARTMENT OF PATHOLOGY AND GENOMIC MEDICINE Yeast, UA None seen [facility] DEPARTMENT OF PATHOLOGY AND GENOMIC MEDICINE Yeast with pseudohyphae, UA None seen [facility] DEPARTMENT OF PATHOLOGY AND GENOMIC MEDICINE Specimen Urine Performing Organization Address City/[facility]/Zipcode Phone Number [facility] DEPARTMENT OF PATHOLOGY AND [address] Partial thromboplastin time, activated (01/02/2018 3:40 PM)Only the most recent of3 resultswithin the time period is included. PTT 28.3 23.0 - 36.0 sec [facility] DEPARTMENT OF PATHOLOGY Comment: AND [facility] PTT therapeutic range for unfractionated heparin is 61.0-112.0 seconds which corresponds to Anti-Xa 0.3-0.7 U/ml. Specimen Blood Performing Organization Address City/[facility]/Zipcode Phone Number [facility] DEPARTMENT OF PATHOLOGY [address] Prothrombin time with INR (01/02/2018 3:40 PM)Only the most recent of3 resultswithin the time period is included. Prothrombin time 14.0 12.0 - 15.0 sec [facility] DEPARTMENT OF PATHOLOGY AND GENOMIC MEDICINE INR 1.1 [facility] DEPARTMENT OF Comment: PATHOLOGY AND GENOMIC The International Normalized Ratio (INR) is a therapeutic MEDICINE monitoring tool for patients who are stable on oral anticoagulant therapy. An INR of 2.0-3.0 is suggested for deep vein thrombosis/pulmonary embolism. Specimen Blood Performing Organization Address City/[facility] Phone Number [facility] DEPARTMENT OF PATHOLOGY AND [address] [place] [address] CBC hemogram (01/02/2018 3:40 PM)Only the most recent of2 resultswithin the time period is included. WBC 4.51 4.50 - 11.00 k/uL [facility] DEPARTMENT OF PATHOLOGY AND GENOMIC MEDICINE RBC 4.12 (L) 4.20 - 5.50 m/uL [facility] DEPARTMENT OF PATHOLOGY AND GENOMIC MEDICINE HGB 12.7 12.0 - 16.0 g/dL [facility] DEPARTMENT OF PATHOLOGY AND GENOMIC MEDICINE HCT 39.1 37.0 - 47.0 % [facility] DEPARTMENT OF PATHOLOGY AND GENOMIC MEDICINE MCV 94.9 82.0 - 100.0 fL [facility] DEPARTMENT OF PATHOLOGY AND GENOMIC MEDICINE MCH 30.8 27.0 - 34.0 pg [facility] DEPARTMENT OF PATHOLOGY AND GENOMIC MEDICINE MCHC 32.5 31.0 - 37.0 g/dL [facility] DEPARTMENT OF PATHOLOGY AND GENOMIC MEDICINE RDW - SD 48.7 37.0 - 55.0 fL [facility] DEPARTMENT OF PATHOLOGY AND GENOMIC MEDICINE MPV 10.1 8.8 - 13.2 fL [facility] DEPARTMENT OF PATHOLOGY AND GENOMIC MEDICINE Platelet count 182 150 - 400 k/uL [facility] DEPARTMENT OF PATHOLOGY AND GENOMIC MEDICINE Nucleated RBC 0.00 /100 WBC [facility] DEPARTMENT OF PATHOLOGY AND GENOMIC MEDICINE Specimen Blood Performing Organization Address City/[facility] Phone Number [facility] DEPARTMENT PATHOLOGY AND [address] [place] [phone] [facility] Hemoglobin A1c (01/02/2018 3:40 PM)Only the most recent of2 resultswithin the time period is included. Hemoglobin A1C 4.4 4.0 - 5.6 % [facility] DEPARTMENT OF PATHOLOGY Comment: AND GENOMIC MEDICINE HbA1c cutoffs for diagnosing diabetes: 4.0% - 5.6%=normal 5.7% - 6.4%=increased risk for diabetes (prediabetes) >=6.5%=diabetes Goals for glycemic control (ADA 2016) < 7.0%Target for non adults with diabetes. More or less stringent targets may be appropriate for individual patients. <7.5% Target for Children and adolescents with type 1 diabetes. Specimen Blood Performing Organization Address City/State/[facility] Phone Number [facility] DEPARTMENT OF PATHOLOGY AND [address] [place] [phone] [facility] Comprehensive metabolic panel (01/02/2018 3:40 PM)Only the most recent of2 resultswithin the time period is included. Sodium 141 135 - 148 mEq/L [facility] DEPARTMENT OF PATHOLOGY AND GENOMIC MEDICINE Potassium 4.0 3.5 - 5.0 mEq/L [facility] DEPARTMENT OF PATHOLOGY AND GENOMIC MEDICINE Chloride 100 98 - 112 mEq/L [facility] DEPARTMENT OF PATHOLOGY AND GENOMIC MEDICINE CO2 29 24 - 31 mEq/L [facility] DEPARTMENT OF PATHOLOGY AND GENOMIC MEDICINE Anion gap 12@ANIO 7 - 15 mEq/L [facility] DEPARTMENT OF PATHOLOGY AND GENOMIC MEDICINE BUN 9 8 - 23 mg/dL [facility] DEPARTMENT OF PATHOLOGY AND GENOMIC MEDICINE Creatinine 0.7 0.5 - 0.9 mg/dL [facility] DEPARTMENT OF PATHOLOGY AND GENOMIC MEDICINE Glucose 92 65 - 99 mg/dL [facility] DEPARTMENT OF PATHOLOGY AND GENOMIC MEDICINE Calcium 9.0 8.8 - 10.2 mg/dL [facility] DEPARTMENT OF PATHOLOGY AND GENOMIC MEDICINE Protein 6.8 6.3 - 8.3 g/dL [facility] DEPARTMENT OF Comment: PATHOLOGY AND GENOMIC 4.6-7.0 g/dL MEDICINE 1 week 4.4-7.6 g/dL 7 months-1year5.1-7.3 g/dL 1-2 years5.6-7.5 g/dL >3 years6.0-8.0 g/dL 18-150 6.3-8.3 g/dL Albumin 3.9 3.5 - 5.0 g/dL [facility] DEPARTMENT OF PATHOLOGY AND GENOMIC MEDICINE A/G ratio 1.3 0.7 - 3.8 [facility] DEPARTMENT OF PATHOLOGY AND GENOMIC MEDICINE Alkaline phosphatase 141 (H) 35 - 104 U/L [facility] DEPARTMENT OF PATHOLOGY AND GENOMIC MEDICINE AST 15 10 - 35 U/L [facility] DEPARTMENT OF PATHOLOGY AND GENOMIC MEDICINE ALT 8 5 - 50 U/L [facility] DEPARTMENT OF PATHOLOGY AND GENOMIC MEDICINE Total bilirubin 0.3 0.0 - 1.2 mg/dL [facility] DEPARTMENT OF PATHOLOGY AND GENOMIC MEDICINE Specimen Plasma specimen Performing Organization Address City/State/Zipcode Phone Number [facility] DEPARTMENT OF PATHOLOGY AND [address] [place] [address] GENOMIC MEDICINE Lipid panel (10/15/2017 4:00 AM) Cholesterol 117 <200 mg/dL [facility] DEPARTMENT OF PATHOLOGY AND GENOMIC MEDICINE Triglycerides 110 <150 mg/dL [facility] DEPARTMENT OF PATHOLOGY AND GENOMIC MEDICINE HDL cholesterol 40 >40 mg/dL [facility] DEPARTMENT OF PATHOLOGY AND GENOMIC MEDICINE LDL cholesterol 60Comment: Result <100 mg/dL [facility] DEPARTMENT OF obtained by direct LDL PATHOLOGY AND GENOMIC measurement MEDICINE Lipid panel interpretation SeeBelow [facility] DEPARTMENT OF Comment: PATHOLOGY AND GENOMIC Total Cholesterol (mg/dL) MEDICINE <200 Desirable [id number] >=240High Triglycerides (mg/dL) <150 Normal [id number] 200-499High >=500Very high HDL Cholesterol (mg/dL) <40Low (male) <40Low (female) LDL Cholesterol (mg/dL) <100 Optimal 100-129Near or above optimal [id number]-[id number] 160-189High >=190Very high Risk Catergories that modify LDL goals. Risk CatergoriesLDL goal (mg/dL) CHD and CHD risk equivalent<100 (10-year risk >20%) Multiple (2+) risk factors <130 (10-year risk=<20%) 0-1 risk factors <160 (<10-year risk) Defining levels of lipids in metabolic syndrome Triglycerides>=150 mg/dL HDL Cholesterol Men<40 mg/dL Women<40 mg/dL Non-HDL cholesterol is a second target for therapy in persons with high triglycerides (>=200 mg/dL) Specimen Plasma specimen Performing Organization Address [facility] [place] Phone Number [facility] DEPARTMENT OF PATHOLOGY AND [address] [place] [address] GENOMIC MEDICINE Gram stain (10/14/2017 6:00 AM) Gram stain result Rare WBC's [facility] DEPARTMENT OF PATHOLOGY Moderate Gram positive rods AND GENOMIC MEDICINE Comment: Specimen Information Specimen Source: Urine Specimen Site: Clean catch Specimen Urine Performing Organization Address [facility] Phone Number [facility] DEPARTMENT OF PATHOLOGY AND [address] [place] [address] GENOMIC MEDICINE Blood culture, aerobic & anaerobic (10/14/2017 4:30 AM)Only the most recent of2 resultswithin the time period is included. Blood culture isolate No growth after 5 days of incubation. [facility] DEPARTMENT OF Comment: PATHOLOGY AND GENOMIC Specimen Information MEDICINE Specimen Source: Blood Specimen Site: Peripheral Hand Right Specimen Blood Performing Organization Address [facility] [place] Phone Number [facility] DEPARTMENT OF PATHOLOGY AND [address] [place] [address] GENOMIC MEDICINE Lactic acid level (10/14/2017 4:30 AM) Lactic acid 2.3 (H) 0.5 - 2.2 mmol/L [facility] DEPARTMENT OF PATHOLOGY AND GENOMIC MEDICINE Specimen Blood Performing Organization Address [facility] Phone Number [facility] DEPARTMENT OF PATHOLOGY AND [address] [place] [address] Phosphorus level (10/13/2017 2:48 PM)Only the most recent of2 resultswithin the time period is included. Phosphorus 2.9 2.4 - 4.5 mg/dL [facility] DEPARTMENT OF PATHOLOGY AND GENOMIC MEDICINE Specimen Plasma specimen Performing Organization Address [facility] Phone Number [facility] DEPARTMENT OF PATHOLOGY AND [address] [place] [address] GENOMIC [facility] Ionized calcium, arterial (10/12/2017 7:45 PM) Ionized calcium, arterial 1.17 1.11 - 1.32 mmol/L [facility] DEPARTMENT OF PATHOLOGY AND GENOMIC MEDICINE Specimen Blood Performing Organization Address [facility]/Zipcode Phone Number [facility] PATHOLOGY AND [address] [place] [address] [facility] Arterial blood gas (10/12/2017 7:45 PM)Only the most recent of2 resultswithin the time period is included. pH, arterial 7.37 7.35 - 7.45 [facility] DEPARTMENT OF PATHOLOGY AND GENOMIC MEDICINE pCO2, arterial 48 (H) 35 - 45 mmHg [facility] DEPARTMENT OF PATHOLOGY AND GENOMIC MEDICINE pO2, arterial 63 (L) 80 - 90 mmHg [facility] DEPARTMENT OF PATHOLOGY AND GENOMIC MEDICINE Bicarbonate, arterial 27.0 21.0 - 28.0 mmol/L [facility] DEPARTMENT OF PATHOLOGY AND GENOMIC MEDICINE Base excess, arterial 2 -2 - 2 mEq/L [facility] DEPARTMENT OF PATHOLOGY AND GENOMIC MEDICINE O2 saturation, arterial 93 (L) 95 - 100 % [facility] DEPARTMENT OF PATHOLOGY AND GENOMIC MEDICINE Specimen Blood Performing Organization Address [facility] [place] Phone Number [facility] PATHOLOGY AND [address] [place] [address] [facility] ECG Pre/Post Op (09/26/2017 6:12 PM) Ventricular rate 70 [facility] Atrial rate 70 [facility] DC interval 124 [facility] QRSD interval 86 [facility] QT interval 384 [facility] QTC interval 414 [facility] P axis 1 33 [facility]USE QRS axis 1 25 [facility] T wave axis 29 [facility] EKG impression Normal sinus rhythm-Normal ECG-In automated [facility] comparison with ECG of 26-SEP-2017 18:11,-fusion complexes are no longer present- Performing Organization Address [facility] Phone Number [facility] [address] [place] [address] after 03/17/2017 Insurance Payer Benefit Plan / Group Subscriber ID Type Phone Address MEDICAID MEDICAID xxxxxxxxx Medicaid MEDICARE MEDICARE PART A AND B xxxxxxxxxx Medicare [place], [place] Home: [address] [place], [place] [id number] [id number] [place] [address]
--- NOTE | 2018-03-18 15:51 | RAD REPORT ---
EXAM DESCRIPTION: CT - Ct Stroke Brain Wo Cont - 03/18/2018 3:44 pm CLINICAL HISTORY: Stroke protocol CT head CLINICAL HISTORY: None. TECHNIQUE: Axial 5 millimeter thick images of the head were obtained without IV contrast. All CT scans are performed using dose optimization technique as appropriate and may include automated exposure control or mA/KV adjustment according to patient size. FINDINGS: No intracranial hemorrhage, mass, or cerebral edema. No acute infarction identifiable. No cortical edema or sulcal effacement. Patient has a mild to moderate atrophy pattern. Advanced chronic ischemic change present throughout the cerebral white matter involving each thalamus and basal gangl ia. Brainstem chronic ischemic change suspected as well. Arterial calcifications are present. Patel ma tter-white matter differentiation is preserved. Visualized portions of the mastoid air cells, paranasal sinuses, and orbits are unremarkable. Findings telephoned to the referring physician 3:47 p.m. IMPRESSION: No CT evidence of acute intracranial process. Mild to moderate atrophy and advanced chronic ischemic change. Chronic ischemic changes can mask nonhemorrhagic acute infarction. MR brain followup can be obtained if there is ongoing concern for acute ischemia.
[2018-03-18 16:15] LABS: Absolute Lymphocytes (CBC) 2.4 K/uL (0.7-4.9); Absolute Monocytes 0.3 K/uL (0.1-1.3); Eosinophils % 3.2 % (0-4.4); Hematocrit 40.1 % (36.0-45.0); MCH 31.3 pg (27.0-35.0); MCV 92.3 fL (80-100); Monocytes % 5.8 % (3.3-12.3); RBC Red Blood Cell Count 4.35 M/uL (3.86-4.86)
[2018-03-18 16:18] LABS: Protime INR 1.03
[2018-03-18 16:26] LABS: BUN Blood Urea Nitrogen 7 mg/dL (7-18); Bicarbonate 31 mmol/L (21-32); Glucose Level 97 mg/dL (74-106); Potassium 4.3 mmol/L (3.5-5.1); Sodium Level 140 mmol/L (136-145)
--- NOTE | 2018-03-18 16:43 | RAD REPORT ---
EXAM DESCRIPTION: RAD - Chest Single View - 03/18/2018 4:16 pm CLINICAL HISTORY: Malaise declining state, Stroke protocol chest film COMPARISON: None. TECHNIQUE: AP portable chest image was obtained 1612 hours . FINDINGS: Lungs are clear. Heart and vasculature are normal. No measurable pleural effusion and no p neumothorax. No gross bony abnormality seen. No acute aortic findings suspected. IMPRESSION: No acute cardiopulmonary process.
--- NOTE | 2018-03-18 17:44 | EDPHYS ---
Physician Documentation [facility] Name: Shruti Goins Age: 73 yrs Sex: Female : 1945 Arrival Date: 03/18/2018 Time: 15:29 Bed 14 Private MD: Scot Ornelas ED Physician Kati Esteban HPI: 03/18 15:39 This 73 yrs old Female presents to ER via Ambulatory with complaints of gs Slurred Speech. 15:39 The patient presents to the emergency department with a speech or higher order brain gs function problem. Onset: The symptoms/episode began/occurred acutely, at 13:50. Associated signs and symptoms: Pertinent negatives: neck stiffness, paresthesias, double vision. Severity of symptoms: At their worst the symptoms were moderate in the emergency department the symptoms have improved markedly. The patient has experienced similar episodes in the past, a few times. Historical: - Allergies: 16:51 Codeine; jl7 16:51 Morphine; jl7 16:51 Tetanus Vaccines \T\ Toxoid; jl7 16:51 Talwin; jl7 16:51 tramadol; jl7 16:51 Neurontin; jl7 16:51 Atropine; jl7 16:51 Aspirin; jl7 - Home Meds: 16:51 Diltiazem Oral [Active]; Lyrica Oral [Active]; Effexor Oral [Active]; Prevacid Oral jl7 [Active]; Oral [Active]; [place] 5-325 mg Oral tab [Active]; Valium Oral [Active]; lansoprazole oral oral [Active]; Metoprolol Tartrate Oral [Active]; Plavix Oral [Active]; venlafaxine oral oral [Active]; - PMHx: 16:51 TIA; Diverticulitis; Colitis; Hypertension; jl7 - PSHx: 16:51 Appendectomy; Cholecystectomy; Knee surgery; hip; jl7 - Immunization history:: Adult Immunizations unknown. - Ebola Screening: : No symptoms or risks identified at this time. - Social history:: Smoking status: Patient/guardian denies using tobacco. ROS: 15:39 All other systems are negative. gs Exam: 15:39 Head/Face: Normocephalic, atraumatic. Eyes: Pupils equal round and reactive to light, gs extra-ocular motions intact. Lids and lashes normal. Conjunctiva and sclera are non-icteric and not injected. Cornea within normal limits. Periorbital areas with no swelling, redness, or edema. ENT: Nares patent. No nasal discharge, no septal abnormalities noted. Tympanic membranes are normal and external auditory canals are clear. Oropharynx with no redness, swelling, or masses, exudates, or evidence of obstruction, uvula midline. Mucous membranes moist. Neck: Trachea midline, no thyromegaly or masses palpated, and no cervical lymphadenopathy. Supple, full range of motion without nuchal rigidity, or vertebral point tenderness. No Meningismus. Chest/axilla: Normal chest wall appearance and motion. Nontender with no deformity. No lesions are appreciated. Cardiovascular: Regular rate and rhythm with a normal S1 and S2. No gallops, murmurs, or rubs. Normal PMI, no JVD. No pulse deficits. Respiratory: Lungs have equal breath sounds bilaterally, clear to auscultation and percussion. No rales, rhonchi or wheezes noted. No increased work of breathing, no retractions or nasal flaring. Abdomen/GI: Soft, non-tender, with normal bowel sounds. No distension or tympany. No guarding or rebound. No evidence of tenderness throughout. Back: No spinal tenderness. No costovertebral tenderness. Full range of motion. Skin: Warm, dry with normal turgor. Normal color with no rashes, no lesions, and no evidence of cellulitis. MS/ Extremity: Pulses equal, no cyanosis. Neurovascular intact. Full, normal range of motion. 15:39 Constitutional: The patient appears alert, awake. 15:39 ECG was reviewed by the Attending Physician. 15:39 Neuro: Orientation: to person, place, time, situation, Cranial nerves: CN II- XII are normal as tested, Cerebellar function: normal finger to nose testing, Motor: strength is 5/5 in the left arm and left leg, strength is 4/5 in the right arm and right leg, Sensation: no obvious gross deficits. Vital Signs: 15:50 BP 121 / 61; Pulse 50; Resp 18 S; Temp 98.2(O); Pulse Ox 97% on R/A; Weight 58.97 kg jl7 (R); Pain 5/10; 16:49 BP 137 / 60; Pulse 55; Resp 16 S; Pulse Ox 100% on R/A; jl7 17:38 BP 122 / 68; Pulse 55; Resp 16; Pulse Ox 100% on R/A; jl7 NIH Stroke Scale Scores: 15:39 NIHSS Score: 0 15:50 NIHSS Score: 1 jl7 MDM: 15:53 Patient medically screened. 18:20 Data reviewed: vital signs, nurses notes, lab test result(s), EKG. Physician consultation: Pernell Fields MD and will see patient. ED course: no tpa symptoms resolved back to baseline dr fields agrees. 03/18 15:36 Order name: Basic Metabolic Panel; Complete Time: 16:39 03/18 15:36 Order name: CBC with Diff; Complete Time: 16:39 03/18 15:36 Order name: Protime (+inr); Complete Time: 16:39 03/18 15:36 Order name: CT Stroke Brain w/o Contrast; Complete Time: 16:39 03/18 15:36 Order name: Stroke CXR 1 View; Complete Time: 17:00 03/18 16:47 Order name: Urine Dipstick--Ancillary (enter results) ds4 03/18 15:36 Order name: EKG; Complete Time: 15:37 03/18 15:36 Order name: Accucheck; Complete Time: 16:16 03/18 15:36 Order name: Cardiac monitoring; Complete Time: 16:17 03/18 15:36 Order name: EKG - Nurse/Tech; Complete Time: 16:17 03/18 15:36 Order name: IV Saline Lock; Complete Time: 16:17 03/18 15:36 Order name: Labs collected and sent; Complete Time: 16:17 03/18 15:36 Order name: NPO; Complete Time: 16:17 03/18 15:36 Order name: O2 Per Protocol; Complete Time: 16:17 03/18 15:36 Order name: O2 Sat Monitoring; Complete Time: 16:17 03/18 15:36 Order name: Stroke Swallow Screen; Complete Time: 16:17 EC:39 Rate is 48 beats/min. Rhythm is regular. VA interval is normal. QRS interval is normal. T waves are Inverted in lead aVL. Clinical impression: Abnormal EKG without significant change. Interpreted by me. Administered Medications: No medications were administered Point of Care Testing: Blood Glucose: 15:46 Blood Glucose: 75 mg/dL; jl7 Ranges: Critical Glucose Levels:Adult <50 mg/dl or >400 mg/dl <40 mg/dl or >180 mg/dl Disposition: 03/18/18 17:43 Hospitalization ordered by Luciano Estrada for Observation. Preliminary diagnosis is Transient cerebral ischemic attack, unspecified. - Bed requested for Telemetry/MedSurg (observation). - Status is Observation. jl7 - Condition is Stable. - Problem is an ongoing problem. - Symptoms are resolved. UTI on Admission? No NIH Stroke Scale - NIH Stroke Score Date: 03/18/2018 Time: 15:39 Total Score = 0 1a. Level of Consciousness (LOC) - 0(Alert) 1b. Level of Consciousness (LOC) (Year \T\ Age) - 0(Both) 1c. LOC Commands (Open \T\ Closes Eyes/Tanner Rotary Drum Continuous Process) - 0(Both) 2. Best Gaze (Lateral Gaze Paresis) - 0(Normal) 3. Visual Field Loss - 0(No visual loss) 4. Facial Palsy - 0(Normal) 5a. Left Arm: Motor (10-second hold) - 0(No drift) 5b. Right Arm: Motor (10-second hold) - 0(No drift) 6a. Left Leg: Motor (5-second hold - always test supine) - 0(No drift) 6b. Right Leg: Motor (5-second hold - always test supine) - 0(No drift) 7. Limb Ataxia (finger/nose \T\ heel/adams - test with eyes open) - 0(Absent) 8. Sensory Loss (pinprick arms/legs/face) - 0(Normal) 9. Best Language: Aphasia (description/naming/reading) - 0(No aphasia) 10. Dysarthria (speech clarity - read or repeat words) - 0(Normal) 11. Extinction and Inattention (visual/tactile/auditory/spatial/personal) - 0(No abnormality) Initials: aniya NIH Stroke Scale - NIH Stroke Score Date: 03/18/2018 Time: 15:50 Total Score = 1 1a. Level of Consciousness (LOC) - 0(Alert) 1b. Level of Consciousness (LOC) (Year \T\ Age) - 0(Both) 1c. LOC Commands (Open \T\ Closes Eyes/Tanner Rotary Drum Continuous Process) - 0(Both) 2. Best Gaze (Lateral Gaze Paresis) - 0(Normal) 3. Visual Field Loss - 0(No visual loss) 4. Facial Palsy - 0(Normal) 5a. Left Arm: Motor (10-second hold) - 0(No drift) 5b. Right Arm: Motor (10-second hold) - 0(No drift) 6a. Left Leg: Motor (5-second hold - always test supine) - 0(No drift) 6b. Right Leg: Motor (5-second hold - always test supine) - 0(No drift) 7. Limb Ataxia (finger/nose \T\ heel/adams - test with eyes open) - 1(Present in one limb) 8. Sensory Loss (pinprick arms/legs/face) - 0(Normal) 9. Best Language: Aphasia (description/naming/reading) - 0(No aphasia) 10. Dysarthria (speech clarity - read or repeat words) - 0(Normal) 11. Extinction and Inattention (visual/tactile/auditory/spatial/personal) - 0(No abnormality) Initials: jl7 Signatures: Dispatcher [employer] Otoniel Meek RN RN jl7 Esteban Parikh MD MD gs Botello, Elizabeth eb Corrections: (The following items were deleted from the chart) 18:01 17:43 Hospitalization Ordered by Luciano Estrada MD for Observation. Preliminary eb diagnosis is Transient cerebral ischemic attack, unspecified. Bed requested for Telemetry/MedSurg (observation). Status is Observation. Condition is Stable. Problem is an ongoing problem. Symptoms are resolved. UTI on Admission? No. 18:09 18:01 03/18/2018 17:43 Hospitalization Ordered by Luciano Estrada MD for jl7 Observation. Preliminary diagnosis is Transient cerebral ischemic attack, unspecified. Bed requested for Telemetry/MedSurg (observation). Status is Observation. Condition is Stable. Problem is an ongoing problem. Symptoms are resolved. UTI on Admission? No. eb
--- NOTE | 2018-03-18 17:44 | ER ---
Nurse's Notes [facility] Name: Shruti Goins Age: 73 yrs Sex: Female : 1945 Arrival Date: 03/18/2018 Time: 15:29 Bed 14 Private MD: Scot Ornelas Diagnosis: Transient cerebral ischemic attack, unspecified Presentation: 03/18 15:35 Presenting complaint: Friend states: She was stuttering worse than normal and Dr. Pineda [facility] told us around 1.50 pm today to come here. It took some time to get her to agree to come. She self medicates and took a Valium before we left. The stuttering has gotten better. Transition of care: patient was not received from another setting of care. Onset of symptoms. Risk Assessment: Do you want to hurt yourself or someone else? Patient reports no desire to harm self or others. Care prior to arrival: None. 15:35 Method Of Arrival: Ambulatory [facility] 15:35 Acuity: KATELIN 2 [facility] 15:35 No acute neurological deficit is noted. Pre-hospital glucose is not applicable to this [facility] patient. Initial Sepsis Screen: Does the patient meet any 2 criteria? No. Patient's initial sepsis screen is negative. Does the patient have a suspected source of infection? No. Patient's initial sepsis screen is negative. Triage Assessment: 15:35 The onset of the patients symptoms was March 18, 2018 at 13:50. General: Appears in [facility] no apparent distress. uncomfortable, Behavior is appropriate for age, anxious, restless. 18:06 Neuro: Reports. [facility] Stroke Activation: Symptom onset < 3 hours Physician: Stroke Attending; Name: Kati; Notified At: 15:31; Arrived At: 15:31 Physician: Chief Stroke Resident; Name: ; Notified At: 15:31; Arrived At: Physician: Stroke Resident; Name: ; Notified At: 15:31; Arrived At: Physician: ED Attending; Name: ; Notified At: 15:31; Arrived At: Physician: ED Resident; Name: ; Notified At: 15:31; Arrived At: Historical: - Allergies: 16:51 Codeine; jl7 16:51 Morphine; jl7 16:51 Tetanus Vaccines \T\ Toxoid; jl7 16:51 Talwin; jl7 16:51 tramadol; jl7 16:51 Neurontin; jl7 16:51 Atropine; jl7 16:51 Aspirin; jl7 - Home Meds: 16:51 Diltiazem Oral [Active]; Lyrica Oral [Active]; Effexor Oral [Active]; Prevacid Oral jl7 [Active]; Oral [Active]; Lincoln 5-325 mg Oral tab [Active]; Valium Oral [Active]; lansoprazole oral oral [Active]; Metoprolol Tartrate Oral [Active]; Plavix Oral [Active]; venlafaxine oral oral [Active]; - PMHx: 16:51 TIA; Diverticulitis; Colitis; Hypertension; jl7 - PSHx: 16:51 Appendectomy; Cholecystectomy; Knee surgery; hip; jl7 - Immunization history:: Adult Immunizations unknown. - Ebola Screening: : No symptoms or risks identified at this time. - Social history:: Smoking status: Patient/guardian denies using tobacco. Screenin:49 Abuse screen: Denies threats or abuse. Denies injuries from another. Nutritional jl7 screening: No deficits noted. Tuberculosis screening: No symptoms or risk factors identified. Fall Risk No fall in past 12 months (0 pts). Secondary diagnosis (15 points) TIA, IV access (20 points). Ambulatory Aid- Crutches/Cane/Walker (15 pts). Gait- Impaired (20 pts.). Mental Status- Overestimates/Forgets Limitations (15 pts.). Total Zuleta Fall Scale indicates High Risk Score (45 or more points). Fall prevention measures have been instituted. Side Rails Up X 2 Placed Close to Nursing Station Frequent Obs/Assessments Occuring Family Present and informed to notify staff if the need to leave the bedside As available patient and family educated on Fall Prevention Program and Strategies. Assessment: 14:42 Reassessment: Back from CT to Room 14. ss 15:50 T-PA (Activase) Screening: Contraindications: Rapidly improving condition or minor jl7 deficit: Yes. General: Appears in no apparent distress. uncomfortable, Behavior is appropriate for age, agitated, restless. Pain: Complains of pain in headache Pain currently is 5 out of 10 on a pain scale. Neuro: Level of Consciousness is awake, alert, obeys commands, Oriented to person, place, time, situation, Master Tax Advisor are weak on right pt has residual right sided deficits from previous stroke. Moves all extremities. Weakness in right arm(s) leg(s) Gait is unsteady, Facial symmetry appears normal, Pupils are PERRLA. Cardiovascular: Heart tones present Patient's skin is warm and dry. Respiratory: Airway is patent Respiratory effort is even, unlabored, Respiratory pattern is regular, symmetrical. GI: No signs and/or symptoms were reported involving the gastrointestinal system. : No signs and/or symptoms were reported regarding the genitourinary system. EENT: No signs and/or symptoms were reported regarding the EENT system. Derm: Skin is pink, warm \T\ dry. Musculoskeletal: bandage noted to left hip, pt reports having hip surgery 2 months ago. 16:00 The patient has not been NPO before screening. The patient is currently on the jl7 following diet: regular The patient is alert, and able to follow commands. The patient does not exhibit slurred or garbled speech. The patient is not exhibiting difficulty speaking. The patient does not exhibit difficulty understanding words. Patient tolerated one teaspoon of water. No drooling, immediate coughing, gurgling, or clearing of the throat was noted. The patient tolerated 90mL of water. No drooling, immediate coughing, gurgling, or clearing of the throat was noted. The patient passed the bedside swallow screening. Oral medications may be given as ordered. Contact Physician for further diet orders. Provider notified of bedside swallow screening results: Esteban Parikh MD. 16:40 Reassessment: Dr. Pineda at bedside. jl7 16:49 Reassessment: Attempted to ambulate pt with Dr. Pineda, pt unable to ambulate [facility] independently at this time. Vital Signs: 15:50 BP 121 / 61; Pulse 50; Resp 18 S; Temp 98.2(O); Pulse Ox 97% on R/A; Weight 58.97 kg jl7 (R); Pain 5/10; 16:49 BP 137 / 60; Pulse 55; Resp 16 S; Pulse Ox 100% on R/A; jl7 17:38 BP 122 / 68; Pulse 55; Resp 16; Pulse Ox 100% on R/A; jl7 NIH Stroke Scale Scores: 15:39 NIHSS Score: 0 gs 15:50 NIHSS Score: 1 jl7 ED Course: 15:29 Patient arrived in ED. mr 15:29 Scot Ornelas MD is Private Physician. mr 15:35 Otoniel Oakley, ANNITA is Primary Nurse. jl7 15:38 Triage completed. jl7 15:38 Arm band placed on right wrist. jl7 15:39 Esteban Parikh MD is Attending Physician. gs 15:40 CT Stroke Brain w/o Contrast In Process Unspecified. EDMS 15:46 CT completed. Pt tolerated procedure poorly. Patient moved to CT via stretcher. Patient eh moved back from CT. 16:00 Initial lab(s) drawn, by me, sent to lab. Urine collected: clean catch specimen, clear. jl7 Inserted saline lock: 22 gauge in left antecubital area, using aseptic technique. Blood collected. 16:16 Stroke CXR 1 View In Process Unspecified. EDMS 16:49 Patient has correct armband on for positive identification. Bed in low position. Call jl7 light in reach. Side rails up X 1. classroom monitor on. Pulse ox on. NIBP on. Warm blanket given. Pillow given. 17:32 Assisted to bathroom. jl7 17:42 Luciano Estrada MD is Hospitalizing Provider. gs 18:07 No provider procedures requiring assistance completed. Patient admitted, IV remains in jl7 place. intact, No redness/swelling at site. Administered Medications: No medications were administered Point of Care Testing: Blood Glucose: 15:46 Blood Glucose: 75 mg/dL; jl7 Ranges: Outcome: 17:43 Decision to Hospitalize by Provider. gs 18:06 Admitted to Tele accompanied by tech, via stretcher, room 401, with chart, Report jl called to ANNITA Latham 18:06 Condition: stable 18:06 Discharge instructions given to patient, Instructed on the need for admit, Demonstrated understanding of instructions. 18:09 Patient left the ED. jl7 NIH Stroke Scale - NIH Stroke Score Date: 03/18/2018 Time: 15:39 Total Score = 0 1a. Level of Consciousness (LOC) - 0(Alert) 1b. Level of Consciousness (LOC) (Year \T\ Age) - 0(Both) 1c. LOC Commands (Open \T\ Closes Eyes/Board Attendant) - 0(Both) 2. Best Gaze (Lateral Gaze Paresis) - 0(Normal) 3. Visual Field Loss - 0(No visual loss) 4. Facial Palsy - 0(Normal) 5a. Left Arm: Motor (10-second hold) - 0(No drift) 5b. Right Arm: Motor (10-second hold) - 0(No drift) 6a. Left Leg: Motor (5-second hold - always test supine) - 0(No drift) 6b. Right Leg: Motor (5-second hold - always test supine) - 0(No drift) 7. Limb Ataxia (finger/nose \T\ heel/adams - test with eyes open) - 0(Absent) 8. Sensory Loss (pinprick arms/legs/face) - 0(Normal) 9. Best Language: Aphasia (description/naming/reading) - 0(No aphasia) 10. Dysarthria (speech clarity - read or repeat words) - 0(Normal) 11. Extinction and Inattention (visual/tactile/auditory/spatial/personal) - 0(No abnormality) Initials: NIH Stroke Scale - NIH Stroke Score Date: 03/18/2018 Time: 15:50 Total Score = 1 1a. Level of Consciousness (LOC) - 0(Alert) 1b. Level of Consciousness (LOC) (Year \T\ Age) - 0(Both) 1c. LOC Commands (Open \T\ Closes Eyes/Board Attendant) - 0(Both) 2. Best Gaze (Lateral Gaze Paresis) - 0(Normal) 3. Visual Field Loss - 0(No visual loss) 4. Facial Palsy - 0(Normal) 5a. Left Arm: Motor (10-second hold) - 0(No drift) 5b. Right Arm: Motor (10-second hold) - 0(No drift) 6a. Left Leg: Motor (5-second hold - always test supine) - 0(No drift) 6b. Right Leg: Motor (5-second hold - always test supine) - 0(No drift) 7. Limb Ataxia (finger/nose \T\ heel/adams - test with eyes open) - 1(Present in one limb) 8. Sensory Loss (pinprick arms/legs/face) - 0(Normal) 9. Best Language: Aphasia (description/naming/reading) - 0(No aphasia) 10. Dysarthria (speech clarity - read or repeat words) - 0(Normal) 11. Extinction and Inattention (visual/tactile/auditory/spatial/personal) - 0(No abnormality) Initials: jl7 Signatures: Dispatcher [employer] ALEXIA CappsTova dill Yeni, Sherron Velasquez, RN RN ss Otoniel Oakley RN RN jl7 Esteban Parikh MD MD
[2018-03-18] MEDS ORDERED: ZOLPIDEM TARTRATE 5 MG TABLET PO PRN (18:15)
[2018-03-18] MEDS: NA CHLORIDE 0.9% 1,000 ML IV SCH (18:53)
[2018-03-18] MEDS: ENOXAPARIN 40 MG/0.4 ML SQ SCH (18:54)
[2018-03-18] MEDS ORDERED: ASPIRIN EC 81 MG TAB PO SCH (19:00)
[2018-03-18] MEDS ORDERED: CLOPIDOGREL 75 MG TABLET PO ONE (19:01)
--- NOTE | 2018-03-18 20:59 | CON ---
Reason: Dysarthria, right-sided weakness. History: A 73-year-old lady, known to myself, with history of polyneuropathy, B12 deficiency, prior TIAs, had right hip replacement and then left hip replacement, and the left hip replacement has an op en wound. She was getting a dressing change performed this afternoon at approximately 1430. Had abr upt onset of speech difficulties, right-sided paresthesias, and right-sided weakness. She states it felt as if the middle of her body was split like an apple with paresthesias on the right, which is a common symptom with thalamic lesions. She was advised to go to the emergency department, which she f inally acquiesced to do. On arrival here, the patient's symptoms have largely improved, although she still has some right-sided weakness and paresthesias. CT scan of the brain; no hemorrhage, atrophy, chronic ischemic change. Chest x-ray, negative/normal. Laboratory data, CBC normal. PTT and INR, normal. Electrolytes normal. UA pending. EKG, sinus bradycardia. Consul tation was requested. Past Medical History: As alluded to. Routine Medications: Effexor, diazepam, Plavix, diltiazem. She is supposed to be on metoprolol as w ell. Review of Systems: General: Chronically ill. Eyes: Denies. Ears, nose, and throat: Dysarthria and stuttering as noted, improving. Cardiovascular: Hypertension. Pulmonary: Negative. GI: Negative. : Negative. Musculoskeletal: Nonhealing surgical wound, left hip. Neurologic: As noted. Psychiatric: Depression and anxiety. Endocrine: Negative. Hematologic: Negative. Physical Examination: Vital Signs: On exam, she is afebrile. Vitals are stable. General: She is awake, alert, oriented. No aphasia. No dysarthria. Occasional stuttering. HEENT: Pupils reactive. Ocular motion full. Jules full. Facial strength and sensation normal. T ongue protrudes evenly. Soft palate elevates symmetrically bilaterally. Extremities: Examination of her extremities reveals right hemiparesis, 4/5. Unable to hold the righ t arm and right leg off the bed, that were questionable. Sensation decreased on the right. Cortical extinction on the left. Reflexes 1/4. Toes are downgoing. Cerebellar exam demonstrates no ataxia. She can stand, but she needs 2-person assist to ambulate. Pertinent Laboratory Data: CBC is normal. Electrolytes are normal. EKG as noted. CT chest and x-r ay as noted. Impression: Transient ischemic attack/possible stroke. Symptoms rapidly improving. Stroke scale is 7. Right hemiparesis, right-sided sensory loss, intermittent dysarthria, and inattention on the lef t. Plan: Add Aspirin. Check carotid Doppler. Repeat B12 level, sedimentation rate, lipids in the morn ing. DVT prophylaxis. Thank you for the consult. We will continue to follow with you. ROSEMARIE Voice ID: [id number] Report ID: [id number]
[2018-03-18] MEDS: ATORVASTATIN 20 MG TAB PO SCH (21:00)
[2018-03-18] MEDS ORDERED: DIAZEPAM 5 MG TABLET PO PRN (21:55)
[2018-03-18 22:33] VITALS: BMI 22.3
[2018-03-18] MEDS: HYDROCODONE/APAP 5/325 MG TAB PO PRN (23:42)
[2018-03-18 23:55] LABS: Absolute Lymphocytes (CBC) 1.8 K/uL (0.7-4.9); Absolute Monocytes 0.3 K/uL (0.1-1.3); Absolute Neutrophil 2.6 K/uL (1.8-8.0); Basophils % 0.9 % (0-1.3); Hematocrit 33.9 % (36.0-45.0); Lymphocytes % 36.7 % (15.3-44.8); MCH 31.8 pg (27.0-35.0); MCV 91.7 fL (80-100); MPV 8.2 fL (7.6-11.3); Monocytes % 6.2 % (3.3-12.3); Protime INR 1.11; RBC Red Blood Cell Count 3.69 M/uL (3.86-4.86)
[2018-03-19 00:06] LABS: ALT/SGPT 13 U/L (12-78); AST/SGOT 14 U/L (15-37); Albumin 3.2 g/dL (3.4-5.0); Alkaline Phosphatase 149 U/L (45-117); BUN Blood Urea Nitrogen 7 mg/dL (7-18); Bicarbonate 29 mmol/L (21-32); Bilirubin Total 0.2 mg/dL (0.2-1.0); Glucose Level 107 mg/dL (74-106); Potassium 4.1 mmol/L (3.5-5.1); Protein, Total 5.8 g/dL (6.4-8.2); Sodium Level 144 mmol/L (136-145)
[2018-03-19] MEDS: NA CHLORIDE 0.9% 1,000 ML IV SCH ×3 (00:12→20:23)
[2018-03-19] MEDS: HYDROCODONE/APAP 5/325 MG TAB PO PRN ×2 (04:43→14:03)
--- NOTE | 2018-03-19 06:45 | EKG ---
Test Date: 2018-03-18 Test Time: 16:02:25 Powerhouse Mechanic: JUANITA MEASUREMENT RESULTS: Intervals: Rate: 48 CT: 150 QRSD: 84 QT: 442 QTc: 394 [place]: P: 45 CT: 150 QRS: 57 T: 67 INTERPRETIVE STATEMENTS: Sinus bradycardia Otherwise normal ECG No previous ECG available for comparison Electronically Signed On 03-19-18 06:44:29 CDT by Yasmani Szymanski
[2018-03-19 06:54] LABS: Thyroid Stimulating Hormone 2.2 uIU/mL (0.360-3.740)
[2018-03-19] MEDS ORDERED: CLOPIDOGREL 75 MG TABLET PO SCH (09:00)
--- NOTE | 2018-03-19 10:51 | P.HP ---
Certification for Inpatient Patient admitted to: Inpatient With expected LOS: >2 Midnights Practitioner: I am a practitioner with admitting privileges, knowledge of patient current condition, hospital course, and medical plan of care. 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 She has been following up with her neurologist, Dr. Pineda. She had was having issues with stuttering which was much worse than she normally does. She notified Dr. Pineda advised her to come to the emergency room. On arrival to the emergency room patient had a code stroke. She had CT of the head which was negative. Her other diagnostic studies have been unremarkable. It is possible patient has had a TIA. She also could have hypoperfusion as she had taken of Valium prior to these episodes occurring. She will be admitted to the hospital for observation. Allergies aspirin Allergy (Verified 03/18/18 17:58) Itching atropine Allergy (Verified 03/18/18 17:58) Itching codeine Allergy (Verified 03/18/18 17:58) Hives gabapentin [From Neurontin] Allergy (Verified 03/18/18 17:58) Hives morphine Allergy (Verified 03/18/18 17:58) Itching pentazocine [From Talwin] Allergy (Verified 03/18/18 17:58) Itching tetanus and diphtheria toxoids Allergy (Verified 03/18/18 17:58) Itching tramadol Allergy (Verified 03/18/18 17:58) Itching Home Medications: Clopidogrel Bisulfate [Plavix] 75 mg PO DAILY 03/18/18 Diazepam [Valium] 10 mg PO TID PRN 03/18/18 Diltiazem Tab [Cardizem Tab] 60 mg PO BIDAC 03/18/18 Docusate [Colace Cap*] 300 mg PO BEDTIME 03/18/18 Hydrocodone 5/APAP 325 [[place] 5/325] 1 tab PO QID PRN 03/18/18 Lansoprazole [Prevacid] 30 mg PO BID 03/18/18 Metoprolol Succinate [Toprol Xl] 25 mg PO DAILY 03/18/18 Phenobarb/Hyoscy/Atropine/Scop [ Tablet*] 16.2 mg PO BID 03/18/18 Pregabalin [Lyrica] 150 mg PO DAILY 03/18/18 Venlafaxine HCl [Venlafaxine HCl ER] 75 mg PO DAILY 03/18/18 - Past Medical/Surgical History Diabetic: No -: CVA -: diverticulitis -: IBS -: Bilateral hand surgery -: Bilateral hip surgery -: hiatal hernia repair -: Appendectomy -: Cholecystectomy - Family History Father Medical History: Heart disease, Stroke Mother Medical History: Stroke Brother Medical History: Heart disease - Social History Smoking Status: Former smoker Alcohol use: No CD- Drugs: No Caffeine use: Yes Place of Residence: Home Review of Systems 10-point ROS is otherwise unremarkable Physical Examination - Vital Signs Temperature: 97 F Blood Pressure: 97/56 Pulse: 73 Respirations: 18 Pulse Ox (%): 96 - Physical Exam General: Alert, In no apparent distress, Oriented x2, Confused HEENT: Atraumatic, PERRLA, Mucous membr. moist/pink, EOMI, Sclerae nonicteric Neck: Supple, 2+ carotid pulse no bruit, No LAD, Without JVD or thyroid abnormality Respiratory: Clear to auscultation bilaterally, Normal air movement Cardiovascular: Regular rate/rhythm, Normal S1 S2, No murmurs Gastrointestinal: Normal bowel sounds, Soft and benign, Non-distended, No tenderness Musculoskeletal: No tenderness Integumentary: No rashes Neurological: Normal gait, Normal tone, Sensation intact, Cranial nerves 3-12 intact, Normal affect, Abnormal speech, Abnormal strength (Right side is weaker than the left) Lymphatics: No axilla or inguinal lymphadenopathy - Studies Laboratory Data (last 24 hrs) 03/18/18 16:00: PT 12.1, INR 1.03 03/18/18 16:00: WBC 5.0, Hgb 13.6, Hct 40.1, Plt Count 213 03/18/18 16:00: Sodium 140, Potassium 4.3, BUN 7, Creatinine 0.60, Glucose 97 Assessment & Plan - Problems (Diagnosis) (1) Cerebral infarction involving left middle cerebral artery Current Visit: Yes Status: Acute (2) Aphasia Current Visit: Yes Status: Acute (3) Asthma Current Visit: No Status: Acute (4) Complicated open wound of left hip Current Visit: No Status: Acute (5) Hx of bilateral hip replacements Current Visit: No Status: Acute - Plan Plan: 1. Anti-platelet therapy 2. Statin therapy 3. Lipid profile 4. Physical therapy evaluation 5. Speech therapy evaluation 6. Neurology consultation 7. Would benefit from getting a MRI/MRA of the brain to evaluate the cerebral arteries. 8. GI and DVT prophylaxis Discharge Plan: Home Plan to discharge in: 48 Hours - Advance Directives Does patient have a Living Will: No Does patient have a Durable POA for Healthcare: No - Code Status/Comfort Care Code Status Assessed: Yes Code Status: Full Code Critical Care: No Time Spent Managing PTS Care (In Minutes): 50
--- NOTE | 2018-03-19 11:13 | RAD REPORT ---
EXAM DESCRIPTION: US - CP - 03/19/2018 10:52 am CLINICAL HISTORY: tia CVA COMPARISON: No comparisons TECHNIQUE: Real-time sonographic evaluation of both carotid systems was performed. Doppler interroga tion was performed with waveform tracing bilaterally. FINDINGS: Normal high resistance waveforms are noted in both external carotid arteries. The common c arotid arteries and internal carotid arteries show normal low resistance waveforms. Moderate hard plaque is present involving the right carotid bulb. Minimal plaque and intimal thickeni ng is present in the left carotid bulb. Peak systolic and end diastolic velocity values and the ICA/C CA ratios are in the non-hemodynamically significant range. Antegrade flow seen in both vertebral arteries. IMPRESSION: Moderate hard plaque is present in the right carotid bulb. No evidence of a hemodynamically significant stenosis.
--- NOTE | 2018-03-19 12:14 | RAD REPORT ---
EXAM DESCRIPTION: RAD - Chest Single View - 03/19/2018 1:09 am CLINICAL HISTORY: CVA Chest pain. COMPARISON: Chest Single View dated 03/18/2018 FINDINGS: Portable technique limits examination quality. Lungs are emphysematous but grossly clear of infiltrate. The heart is normal in size. No displaced fr actures.High-riding humeral head on the right. IMPRESSION: COPD.
--- NOTE | 2018-03-19 13:21 | P.PN ---
Subjective Date of Service: 03/19/18 Chief Complaint: TIA versus CVA feels better but still feels dizzy Physical Examination - Vital Signs Temperature: 97.4 F Blood Pressure: 104/80 Pulse: 80 Respirations: 18 Pulse Ox (%): 96 - Physical Exam General: Alert, In no apparent distress HEENT: Atraumatic, PERRLA, EOMI Neck: Supple, JVD not distended Respiratory: Clear to auscultation bilaterally, Normal air movement Cardiovascular: Regular rate/rhythm, Normal S1 S2 Gastrointestinal: Normal bowel sounds, No tenderness Musculoskeletal: No tenderness Integumentary: No rashes Neurological: Normal speech, Normal tone, Normal affect Lymphatics: No axilla or inguinal lymphadenopathy - Studies Laboratory Data (last 24 hrs) 03/18/18 16:00: PT 12.1, INR 1.03 03/18/18 16:00: WBC 5.0, Hgb 13.6, Hct 40.1, Plt Count 213 03/18/18 16:00: Sodium 140, Potassium 4.3, BUN 7, Creatinine 0.60, Glucose 97 Medications List Reviewed: Yes Assessment And Plan - Current Problems (Diagnosis) (1) TIA (transient ischemic attack) Current Visit: Yes Status: Acute (2) History of CVA (cerebrovascular accident) Current Visit: Yes Status: Chronic (3) Hx of bilateral hip replacements Current Visit: Yes Status: Chronic - Plan --Cont Plavix, can not tolerate asa --MRI tmorrow --PT/OT
--- NOTE | 2018-03-19 14:25 | RAD REPORT ---
EXAM DESCRIPTION: CT - Ct Stroke Brain Wo Cont - 03/19/2018 1:26 pm CLINICAL HISTORY: possible stroke CVA COMPARISON: Ct Stroke Brain Wo Cont dated 03/18/2018 TECHNIQUE: All CT scans are performed using dose optimization technique as appropriate and may inclu de automated exposure control or mA/KV adjustment according to patient size. FINDINGS: No intracranial hemorrhage, hydrocephalus or extra-axial fluid collection.Mild generalized brain atrophy is present with mild periventricular and deep white matter chronic microvascular ische celeste changes.No areas of brain edema or evidence of midline shift. Mild sphenoid sinus thickening. The paranasal sinuses and mastoids are otherwise clear. The calvarium is intact. IMPRESSION: No acute intracranial abnormality. If there is continued clinical concern for CVA, MR i maging of the brain would be recommended. A preliminary written report was provided at the time of the study, and the report was reviewed prio r to final dictation.
[2018-03-19] MEDS: ENOXAPARIN 40 MG/0.4 ML SQ SCH (17:22)
[2018-03-19] MEDS: ATORVASTATIN 20 MG TAB PO SCH ×2 (20:23→20:25)
[2018-03-19 21:18] VITALS: O2SAT 93
[2018-03-19] MEDS ORDERED: PHENOBARB/HYOSCY/ATROPINE/SCOP TABLET PO SCH (23:35)
[2018-03-19] MEDS ORDERED: DOCUSATE NA 100 MG CAP PO SCH (23:35)
[2018-03-19] MEDS ORDERED: DIAZEPAM 5 MG TABLET PO PRN (23:46)
[2018-03-20] MEDS: HYDROCODONE/APAP 5/325 MG TAB PO PRN ×3 (00:45→16:03)
[2018-03-20] MEDS: PANTOPRAZOLE 40MG TABLET PO SCH ×2 (07:30→16:30)
--- NOTE | 2018-03-20 07:41 | EKG ---
Test Date: 2018-03-18 Test Time: 23:59:04 Commercial Baking Teacher: RT-O MEASUREMENT RESULTS: Intervals: Rate: 66 WV: 138 QRSD: 82 QT: 422 QTc: 442 Mazon: P: 71 WV: 138 QRS: 70 T: 74 INTERPRETIVE STATEMENTS: Normal sinus rhythm Possible Left atrial enlargement Borderline ECG Compared to ECG 03/18/2018 16:02:25 Sinus bradycardia no longer present Electronically Signed On 03-20-18 07:40:29 CDT by Yasmani Szymanski
[2018-03-20] MEDS ORDERED: PREGABALIN 75 MG CAP PO SCH (09:00)
[2018-03-20] MEDS ORDERED: HOME MED 1 EA UNK (Lansoprazole [Prevacid] 30 MG) PO SCH (09:00)
[2018-03-20] MEDS ORDERED: DONNATAL PO SCH (09:00)
[2018-03-20] MEDS ORDERED: CLOPIDOGREL 75 MG TABLET PO SCH (09:00)
[2018-03-20] MEDS ORDERED: METOPROLOL XL 25 MG TAB PO SCH (09:00)
[2018-03-20] MEDS ORDERED: VENLAFAXINE HCL XR 75 MG CAP PO SCH (09:00)
[2018-03-20] MEDS: DILTIAZEM HCL 60 MG TAB PO SCH ×2 (09:52→16:36)
--- NOTE | 2018-03-20 09:58 | RAD REPORT ---
EXAM DESCRIPTION: MRI - Brain W/Wo Cont - 03/20/2018 9:26 am CLINICAL HISTORY: Speech difficulty, blurred vision, stroke-like symptoms COMPARISON: CT head March 18 TECHNIQUE: Sagittal and axial T1-weighted images were obtained. Axial PD/heavily T2-weighted and T2- FLAIR images were obtained along with axial DWI/ADC mapping sequences. Coronal heavily T2 weighted s equence obtained. Axial and coronal post-contrast T1-weighted images were also obtained. A 13 millil iter MultiHance contrast following utilized. FINDINGS: No intracranial hemorrhage, mass or acute infarction. There is no edema or shift of midli ne structures. No extra-axial fluid collections. Patel-matter/white matter junction is preserved. Sig nal voids are seen as a normal finding in the major intracranial vessels. Patient has mild to moderat e atrophy change and moderate severity chronic ischemic change. Chronic ischemic change is present in the brainstem as well. Post-contrast images show normal enhancement. No dural thickening. Mastoid air cells and paranasal sinuses are clear. No globe or orbital content abnormality. IMPRESSION: No acute infarction. No acute intracranial finding. Mild to moderate atrophy and moderate chronic ischemic change.
--- NOTE | 2018-03-20 10:01 | RAD REPORT ---
EXAM DESCRIPTION: MRI - MRA Head Wo Cont - 03/20/2018 9:26 am CLINICAL HISTORY: CVA, stroke-like symptoms, difficulty speaking, blurred vision COMPARISON: None. TECHNIQUE: Axial and coronal 3D [id number] image acquisition was performed. 3D rotational images were generated with source and reconstruction images reviewed. FINDINGS: Major venous sinuses are patent. Mild vertebrobasilar tortuosity with no focal abnormality. From skullbase to the termination, the int ernal carotid arteries show no atherosclerotic change, dissection or acute finding. The anterior and posterior cerebral artery show no significant disease. No measurable disease is present in the left m iddle cerebral artery. Mild atherosclerotic changes are present in the right MCA M 2 branches. IMPRESSION: Mild intracranial atherosclerotic changes are present as detailed.
--- NOTE | 2018-03-20 10:04 | RAD REPORT ---
EXAM DESCRIPTION: MRI - MRA Neck W/Wo Cont - 03/20/2018 9:26 am CLINICAL HISTORY: CVA COMPARISON: CT head same date, MRA head same date TECHNIQUE: Coronal imaging acquisition plane was utilized. MR angiography sequences were performed. A 13 milliliter MultiHance contrast volume was utilized for the examination. Coronal static and recon struction images were generated and reviewed. Vertical axis 3D rotational images were obtained using maximum intensity projection protocol. FINDINGS: Motion degradation is present. Aortic arch is 3 vessel. Significant origins stenosis is do ubtful. Arch and great vessel origin assessment and vertebral artery origin assessment are limited by the motion artifacts present on this examination. Vertebral arteries are codominant. No dissection or significant atherosclerotic changes identifiable. No significant common carotid disease identified. Proximal most common carotid artery assessment is limited. Carotid bulb and internal carotid artery bilateral assessment shows no dissection, significant lumina l narrowing or significant atherosclerotic change. IMPRESSION: No significant atherosclerotic changes. No suspicious finding noted.
[2018-03-20] MEDS: NA CHLORIDE 0.9% 1,000 ML IV SCH (10:07)
[2018-03-20 11:17] LABS: Platelet Estimate ADEQ
[2018-03-20 11:18] LABS: Blood Morphology Comment NOT SEEN (NOT SEEN)
[2018-03-20 12:07] VITALS: BP 150/70; TEMP 98
--- NOTE | 2018-03-20 16:27 | P.PN ---
Subjective Date of Service: 03/20/18 Primary Care Provider: Dr. Ornelas; Cardiology-Dr. Eaton Chief Complaint: TIA versus CVA Subjective: Improving Physical Examination - Vital Signs Temperature: 98.0 F Blood Pressure: 150/70 Pulse: 68 Respirations: 16 Pulse Ox (%): 94 - Physical Exam General: Alert, In no apparent distress, Cooperative HEENT: Atraumatic Neck: Supple Respiratory: Clear to auscultation bilaterally, Normal air movement Cardiovascular: Normal pulses, Regular rate/rhythm Gastrointestinal: Normal bowel sounds, Soft and benign, Non-distended Musculoskeletal: No tenderness, No warmth Integumentary: No erythema, No warmth, No cyanosis Neurological: Normal affect - Studies Laboratory Data (last 24 hrs) 03/18/18 16:00: WBC 5.0, Hgb 13.6, Hct 40.1, Plt Count 213 Medications List Reviewed: Yes Assessment & Plan Physician Review Additional Text: Impression: Speech difficulty, right sided paresthesias and weakness likely TIA with history of TIAs Poly neuropathy Dementia Carotid arterial disease COPD Hypertension Hyperlipidemia Plan: Speech difficulty, right sided paresthesias and weakness likely TIA with history of TIAs: Symptoms have resolved. So far MRI/MRA of neck and brain shows no acute findings. Await EEG. Will discuss with Neurology for further recommendation. Patient currently on Plavix, anti-lipid medication and hypertensive medication. Will have physical therapy assess ambulation. Patient may require home health and physical therapy at discharge. Patient does not desire to go to a skilled facility. Patient lives alone. Will need to investigate home situation prior to discharge. Poly neuropathy: Will continue with medication Dementia: Will continue with medication Carotid arterial disease: Will continue with the medication as above. COPD: Will provide COPD medication Hypertension: Will continue with medication. Will monitor and adjust appropriately. Hyperlipidemia: Will continue the medication. Time Spent Managing Pts Care (In Minutes): 55
[2018-03-20] MEDS: ENOXAPARIN 40 MG/0.4 ML SQ SCH (16:37)
--- NOTE | 2018-03-20 16:47 | P.DS ---
Admission Date: 03/18/18 Discharge Date: 03/20/18 Primary Care Provider: Dr. Ornelas; Cardiology-Dr. Eaton Disposition: DC HOME/HOME HEALTH CARE Discharge Condition: GOOD Reason for Admission: TIA versus CVA Consultations: Neurology-Dr. Pineda Procedures: MRI Brain with MRA: COMPARISON: None. TECHNIQUE: Axial and coronal 3D [id number] image acquisition was performed. 3D rotational images were generated with source and reconstruction images reviewed. FINDINGS: Major venous sinuses are patent. Mild vertebrobasilar tortuosity with no focal abnormality. From skullbase to the termination, the internal carotid arteries show no atherosclerotic change, dissection or acute finding. The anterior and posterior cerebral artery show no significant disease. No measurable disease is present in the left middle cerebral artery. Mild atherosclerotic changes are present in the right MCA M 2 branches. IMPRESSION: Mild intracranial atherosclerotic changes are present as detailed. MRA Neck: COMPARISON: CT head same date, MRA head same date TECHNIQUE: Coronal imaging acquisition plane was utilized. MR angiography sequences were performed. A 13 milliliter MultiHance contrast volume was utilized for the examination. Coronal static and reconstruction images were generated and reviewed. Vertical axis 3D rotational images were obtained using maximum intensity projection protocol. FINDINGS: Motion degradation is present. Aortic arch is 3 vessel. Significant origins stenosis is doubtful. Arch and great vessel origin assessment and vertebral artery origin assessment are limited by the motion artifacts present on this examination. Vertebral arteries are codominant. No dissection or significant atherosclerotic changes identifiable. No significant common carotid disease identified. Proximal most common carotid artery assessment is limited. Carotid bulb and internal carotid artery bilateral assessment shows no dissection, significant luminal narrowing or significant atherosclerotic change. IMPRESSION: No significant atherosclerotic changes. No suspicious finding noted. MRI Brain: COMPARISON: CT head March 18 TECHNIQUE: Sagittal and axial T1-weighted images were obtained. Axial PD/ heavily T2-weighted and T2-FLAIR images were obtained along with axial DWI/ADC mapping sequences. Coronal heavily T2 weighted sequence obtained. Axial and coronal post-contrast T1-weighted images were also obtained. A 13 milliliter MultiHance contrast following utilized. FINDINGS: No intracranial hemorrhage, mass or acute infarction. There is no edema or shift of midline structures. No extra-axial fluid collections. Patel- matter/white matter junction is preserved. Signal voids are seen as a normal finding in the major intracranial vessels. Patient has mild to moderate atrophy change and moderate severity chronic ischemic change. Chronic ischemic change is present in the brainstem as well. Post-contrast images show normal enhancement. No dural thickening. Mastoid air cells and paranasal sinuses are clear IMPRESSION: No acute infarction. No acute intracranial finding. Mild to moderate atrophy and moderate chronic ischemic change. Carotid doppler: COMPARISON: No comparisons TECHNIQUE: Real-time sonographic evaluation of both carotid systems was performed. Doppler interrogation was performed with waveform tracing bilaterally. FINDINGS: Normal high resistance waveforms are noted in both external carotid arteries. The common carotid arteries and internal carotid arteries show normal low resistance waveforms. Moderate hard plaque is present involving the right carotid bulb. Minimal plaque and intimal thickening is present in the left carotid bulb. Peak systolic and end diastolic velocity values and the ICA/CCA ratios are in the non -hemodynamically significant range. Antegrade flow seen in both vertebral arteries. IMPRESSION: Moderate hard plaque is present in the right carotid bulb. No evidence of a hemodynamically significant stenosis. CXR: COPD changes noted Medical Problem List: Speech difficulty, right sided paresthesias and weakness likely TIA with history of TIAs Polyneuropathy Chronic pain Carotid arterial disease COPD, suspected Hypertension Hyperlipidemia GERD Depression with anxiety Brief History of Present Illness: 73-year-old female presented with speech difficulty, right-sided weakness and paresthesia. Hospital Course: Patient presented with speech difficulty, right-sided paresthesia and weakness likely TIA with history of TIAs. MRI/MRA of brain and neck showed no acute findings. Patient evaluated by neurology. Patient did well during the course of her stay. No neurological intervention required. Medications adjusted by neurology. At discharge she will continue with Plavix. Lipitor 20 mg daily has been added. Patient will continue with her hypertensive medications. At discharge she will continue with home health and physical therapy. Recommendation for the patient follow up with neurology as an outpatient to further monitor. Patient has polyneuropathy and chronic pain. Patient will continue with her medications including Delmar 5/325 mg 1 pill 4 times a day as needed for pain and Lyrica on 150 mg 1 pill daily. Further adjustment can be done by her PCP. Patient has carotid arterial disease. No significant stenosis noted on carotids. This can be followed up as an outpatient. Patient will continue with Plavix as directed Patient has hypertension. Patient will continue with her medications including Cardizem 60 mg 1 pill twice daily and metoprolol XL 25 mg daily. Recommendation is to maintain blood pressures less 150/80. Further adjustment can be done by her PCP. Patient has hyperlipidemia. At discharge Lipitor 20 mg daily has been added. Patient has GERD. She will continue with Prevacid 30 mg 1 pill twice daily. Patient has depression with anxiety. Patient will continue with Effexor XR 75 mg daily. Patient takes benzodiazepine-Valium 10 mg 1 pill 3 times a day as needed. Recommendation is to limit and eventually discontinued medication. This can be done by her PCP. Patient may have underlying COPD. Recommendation is for the patient to be further evaluated as an outpatient by pulmonology. Patient may require pulmonary function test to further address. Vital Signs/Physical Exam: Temp Pulse Resp BP Pulse Ox 98.0 F 68 16 150/70 H 94 03/20/18 16:27 03/20/18 16:36 03/20/18 16:27 03/20/18 16:36 03/20/18 16:27 General: Alert, In no apparent distress, Cooperative HEENT: Atraumatic Neck: Supple Respiratory: Clear to auscultation bilaterally, Normal air movement Cardiovascular: Normal pulses, Regular rate/rhythm Gastrointestinal: Normal bowel sounds, Soft and benign, Non-distended, No tenderness, No masses, No rebound, No guarding Musculoskeletal: No erythema, No tenderness, No warmth Integumentary: No erythema, No warmth, No cyanosis Neurological: Normal speech, Normal strength at 5/5 x4 extr, Normal affect Laboratory Data at Discharge: WBC 5.0 K/uL (4.3-10.9) 03/18/18 23:10 Hgb 11.7 g/dL (12.0-15.0) L 03/18/18 23:10 Hct 33.9 % (36.0-45.0) L D 03/18/18 23:10 Plt Count 178 K/uL (152-406) 03/18/18 23:10 PT 13.1 SECONDS (9.5-12.5) H 03/18/18 23:10 INR 1.11 03/18/18 23:10 Sodium 144 mmol/L (136-145) 03/18/18 23:10 Potassium 4.1 mmol/L (3.5-5.1) 03/18/18 23:10 BUN 7 mg/dL (7-18) 03/18/18 23:10 Creatinine 0.50 mg/dL (0.55-1.3) L 03/18/18 23:10 Glucose 107 mg/dL (74-106) H 03/18/18 23:10 Total Bilirubin 0.2 mg/dL (0.2-1.0) 03/18/18 23:10 AST 14 U/L (15-37) L 03/18/18 23:10 ALT 13 U/L (12-78) 03/18/18 23:10 Alkaline Phosphatase 149 U/L (45-117) H 03/18/18 23:10 Triglycerides 181 mg/dL (<150) H 03/19/18 05:20 Cholesterol 183 mg/dL (<200) 03/19/18 05:20 HDL Cholesterol 50 mg/dL (40-60) 03/19/18 05:20 Cholesterol/HDL Ratio 3.66 03/19/18 05:20 Home Medications: Clopidogrel Bisulfate [Plavix*] 75 mg PO DAILY 03/18/18 Diazepam [Valium] 10 mg PO TID PRN 03/18/18 Diltiazem Tab [Cardizem Tab*] 60 mg PO BIDAC 03/18/18 Docusate [Colace Cap*] 300 mg PO BEDTIME 03/18/18 Hydrocodone 5/APAP 325 [Delmar 5/325*] 1 tab PO QID PRN 03/18/18 Lansoprazole [Prevacid] 30 mg PO BID 03/18/18 Metoprolol Succinate [Toprol Xl*] 25 mg PO DAILY 03/18/18 Phenobarb/Hyoscy/Atropine/Scop [ Tablet*] 16.2 mg PO BID 03/18/18 Pregabalin [Lyrica*] 150 mg PO DAILY 03/18/18 Venlafaxine HCl [Venlafaxine HCl ER] 75 mg PO DAILY 03/18/18 Atorvastatin Calcium [Lipitor*] 20 mg PO BEDTIME #30 tab 03/20/18 New Medications: Atorvastatin Calcium [Lipitor*] 20 mg PO BEDTIME #30 tab Patient Discharge Instructions: 1. Patient will need a follow up with her PCP in 1 week to follow up this hospitalization. 2. Patient presented with speech difficulty, right-sided paresthesia and weakness likely TIA with history of TIAs. MRI/MRA of brain and neck showed no acute findings. Patient evaluated by neurology. Patient did well during the course of her stay. No neurological intervention required. Medications adjusted by neurology. At discharge she will continue with Plavix. Lipitor 20 mg daily has been added. Patient will continue with her hypertensive medications. At discharge she will continue with home health and physical therapy. Recommendation for the patient follow up with neurology as an outpatient to further monitor. 3. Patient has polyneuropathy and chronic pain. Patient will continue with her medications including Delmar 5/325 mg 1 pill 4 times a day as needed for pain and Lyrica on 150 mg 1 pill daily. Further adjustment can be done by her PCP. 4. Patient has carotid arterial disease. No significant stenosis noted on carotids. This can be followed up as an outpatient. Patient will continue with Plavix as directed. 5. Patient has hypertension. Patient will continue with her medications including Cardizem 60 mg 1 pill twice daily and metoprolol XL 25 mg daily. Recommendation is to maintain blood pressures less 150/80. Further adjustment can be done by her PCP. 6. Patient has hyperlipidemia. At discharge Lipitor 20 mg daily has been added. 7. Patient has GERD. She will continue with Prevacid 30 mg 1 pill twice daily. 8. Patient has depression with anxiety. Patient will continue with Effexor XR 75 mg daily. 9. Patient takes benzodiazepine-Valium 10 mg 1 pill 3 times a day as needed. Recommendation is to limit and eventually discontinued medication. This can be done by her PCP. 10. Patient may have underlying COPD. Recommendation is for the patient to be further evaluated as an outpatient by pulmonology. Patient may require pulmonary function test to further address. Diet: AHA Activity: Fall precautions Time spent managing pt's care (in minutes): 55
--- NOTE | 2018-03-20 21:04 | PN ---
Date of Progress Note: 03/20/2018 Time: 1650. Reason: TIA. Interval History: The patient is stable. No further episodes. Brain MRI. No stroke. MRA negative . No dissection. No significant stenosis. Seen by Therapy. She has been ambulating with assistanc e. She has home health. I think she could be safely discharged to home with the addition of the sta tin with outpatient home health. We will repeat a CPK and liver function tests in the office. Objective: General: She is awake, alert. HEENT: Pupils reactive. Ocular motion full. Jules full. Face symmetric. Extremities: Strength full today. Sensation intact. Reflexes symmetric. The patient is ambulatory . Impression: Transient ischemic attack. Plan: EEG done. Results still pending. We will review and contact the patient if it requires addit ional interventions. Otherwise, I think she could safely be discharged to home tonight with the kasandra tion of Lipitor to her regimen. Thank you for the consult. I will see her back in my office in 2 weeks. ROSEMARIE Voice ID: [id number] Report ID: [id number]
--- NOTE | 2018-03-22 09:07 | EEG ---
CHART: [id number] TEST ID#: [id number] DATE OF STUDY: 03/20/2018 THE EEG WAS RECORDED PORTABLE IN THE PATIENTS ROOM ON A 17 CHANNEL MACHINE. ELECTRODES WERE APPLIED IN THE USUAL MANNER USING THE INTERNATIONAL 10-20 SYSTEM. THE WAKING BACKGROUND RHYTHM IN THIS RECORD CONSISTS OF VERY WELL DEVELOPED AND WELL ORGANIZED WAVES OF 10 HZ., MAXIMAL IN THE POSTERIOR HEAD REGIONS WHICH ATTENUATE NORMALLY WITH EYE OPENING. THERE ARE NO FOCAL OR LATERALIZING FEATURES. NO EPILEPTIFORM ACTIVITY APPEARS. SLEEP DID NOT OCCUR. HYPERVENTILATION WAS NOT PEFORMED. PHOTIC STIMULATION PRODUCED FAIR DRIVING BILATERALLY. IMPRESSION: NORMAL EEG FOR THE AGE OF THE PATIENT IN [place] AND DROWSINESS.
== END 2018-03-20 19:13 | disposition home health service (06) ==
LOC: ER 15:26 → 4TH 17:51
PROVIDERS: ADMIT Internal Medicine Hematology & Oncology; ATTEND Hospitalist
DX: R20.2 Paresthesia of skin (principal); R53.1 Weakness; G62.9 Polyneuropathy, unspecified; G89.29 Other chronic pain; Z86.73 Personal history of transient ischemic attack (TIA), and cerebral infarction without residual deficits; I10 Essential (primary) hypertension; E78.5 Hyperlipidemia, unspecified; F41.8 Other specified anxiety disorders; K21.9 Gastro-esophageal reflux disease without esophagitis; Z88.6 Allergy status to analgesic agent
CPT/HCPCS: 36415; 70450 ×2; 70544; 70549; 70553; 71045 ×2; 80048; 80053; 80061; 82607; 82962 ×2; 84443; 85025 ×2; 85610 ×2; 85652; 93005 ×2; 93880; 95819; 97163; 99285; A9577; G0378 ×2; J1650 ×3; J7030 ×5